=== PATIENT | male | born 1980 ===

== ENCOUNTER 2017-08-09 09:33 | Observation (INO) | payer BC ==
[2017-08-09 09:44] VITALS: BMI 38.3
[2017-08-09] MEDS ORDERED: Albuterol-Ipratrop 3 mg / 0.5 (3 ml) UD IH STA ×2 (09:50→11:35)
--- NOTE | 2017-08-09 09:55 | ED PDOC ---
Arrival/HPI - General Historian: Patient - History of Present Illness Time/Duration: 4-6 hours Symptom Onset: Sudden Symptom Course: Intermittent Quality: Unable to Describe Severity Level: Moderate, Severe Context: Walking, Exertion, Home, Work <Charmaine Chapman - Last Filed: 08/09/17 11:53> <ElenaStanford - Last Filed: 08/09/17 11:56> - General Chief Complaint: Chest Pain Time Seen by Provider: 08/09/17 09:35 - History of Present Illness Narrative History of Present Illness (Text): 08/09/17 09:52 37M w/PMH sig for asthma, eczema evaluated for chest pain x few hrs. Pt reports left sided, non radiating, intermittent, severe chest pain that started this AM. Pt went to work, was walking up stairs with recurrence of chest pain. "Does not feel right" Admits to dizziness, SOB, palpitations, recent URI illness. No other complaints. PMH: Asthma, Eczema PSH: Denies All: Seasonal, peanuts, egg, shellfish SH: Denies tobacco, ETOH, or illicit drug use PMD: Adaniel (Charmaine Chapman) Modifying Factors (Text): 08/09/17 09:55 None (Charmaine Chapman) Associated Symptoms (Text): 08/09/17 09:55 None (Charmaine Chapman) Past Medical History - Provider Review Nursing Documentation Reviewed: Yes - Infectious Disease Hx of Infectious Diseases: None - Tetanus Immunization Tetanus Immunization: Up to Date - Cardiac Hx Cardiac Disorders: No - Pulmonary Hx Asthma: Yes Hx Bronchitis: Yes - Neurological Hx Neurological Disorder: No - HEENT Hx HEENT Disorder: No - Renal Hx Renal Disorder: No - Endocrine/Metabolic Hx Endocrine Disorders: No - Hematological/Oncological Hx Blood Disorders: No - Integumentary Hx Dermatological Disorder: Yes Hx Eczema: Yes - Musculoskeletal/Rheumatological Hx Musculoskeletal Disorders: No Hx Falls: No - Gastrointestinal Hx Gastrointestinal Disorders: No - Genitourinary/Gynecological Hx Genitourinary Disorders: No - Psychiatric Hx Psychophysiologic Disorder: No Hx Anxiety: No Hx Bipolar Disorder: No Hx Depression: No Hx Emotional Abuse: No Hx Hallucinations: No Hx Panic Disorder: No Hx Post Traumatic Stress Disorder: No Hx Psychosis: No Hx Physical Abuse: No Hx Schizophrenia: No Hx Sexual Abuse: No Hx Substance Use: No - Past Surgical History Past Surgical History: No Previous - Anesthesia Hx Anesthesia: No Hx Anesthesia Reactions: No Hx Malignant Hyperthermia: No - Suicidal Assessment Feels Threatened In Home Enviroment: No <Charmaine Chapman - Last Filed: 08/09/17 11:53> Family/Social History - Physician Review Nursing Documentation Reviewed: Yes Family/Social History: No Known Family HX Smoking Status: Never Smoked Hx Alcohol Use: No Hx Substance Use: No Hx Substance Use Treatment: No <Charmaine Chapman - Last Filed: 08/09/17 11:53> Allergies/Home Meds <Charmaine Chapman - Last Filed: 08/09/17 11:53> <Baltazar Parkervicente - Last Filed: 08/09/17 11:56> Allergies/Adverse Reactions: Allergies EGG Allergy (Verified 08/09/17 09:50) ANAPHYLAXIS peanut Allergy (Verified 08/09/17 09:50) ANAPHYLAXIS shellfish derived Allergy (Verified 08/09/17 09:50) ANAPHYLAXIS Home Medications: Home Meds Medication Instructions Recorded Confirmed No Known Home Med 08/09/17 08/09/17 Review of Systems - Physician Review All systems were reviewed & negative as marked: Yes - Review of Systems Constitutional: Normal. absent: Fatigue, Fevers Eyes: Normal. absent: Vision Changes ENT: Sore Throat (recent), Rhinorrhea, Sinus Congestion. absent: Normal Respiratory: SOB, Cough, Wheezing. absent: Normal Cardiovascular: Chest Pain, Palpitations, GARCIA. absent: Normal, Syncope Gastrointestinal: Normal. absent: Abdominal Pain, Nausea, Vomiting Genitourinary Male: Normal. absent: Dysuria Musculoskeletal: Normal. absent: Back Pain Skin: Normal. absent: Rash Neurological: Dizziness. absent: Normal, Headache <Charmaine Chapman - Last Filed: 08/09/17 11:53> Physical Exam Vital Signs Reviewed: Yes Temperature: Afebrile Blood Pressure: Hypertensive Pulse: Regular Respiratory Rate: Normal Appearance: Positive for: Non-Toxic Pain Distress: None Mental Status: Positive for: Alert and Oriented X 3 - Systems Exam Head: Present: Atraumatic, Normocephalic Extroacular Muscles: Present: EOMI Conjunctiva: Present: Normal Ears: Present: Normal Mouth: Present: Moist Mucous Membranes Nose (External): Present: Atraumatic Neck: Present: Normal Range of Motion Respiratory/Chest: Present: Wheezes (Right upper lung barnett). No: Good Air Exchange, Respiratory Distress, Accessory Muscle Use Cardiovascular: Present: Regular Rate and Rhythm, Normal S1, S2. No: Murmurs Abdomen: Present: Normal Bowel Sounds. No: Tenderness, Distention, Peritoneal Signs Upper Extremity: Present: Normal Inspection. No: Cyanosis, Edema Lower Extremity: Present: Edema (Right leg). No: Normal Inspection, Tenderness Neurological: Present: GCS=15, CN II-XII Intact, Speech Normal Skin: Present: Warm, Dry, Normal Color. No: Rashes Psychiatric: Present: Alert, Oriented x 3, Normal Insight, Normal Concentration <Charmaine Chapman - Last Filed: 08/09/17 11:53> Vital Signs Temp Pulse Resp BP Pulse Ox 08/09/17 10:57 98.5 F 86 18 127/59 L 100 08/09/17 09:48 98.3 F 72 18 154/88 H 100 08/09/17 09:45 72 18 154/88 H 100 Medical Decision Making - Lab Interpretations I have reviewed the lab results: Yes - EKG Interpretation Interpreted by ED Physician: Yes Type: 12 lead EKG <Charmaine Chapman - Last Filed: 08/09/17 11:53> - Lab Interpretations I have reviewed the lab results: Yes - RAD Interpretation Sprinkling System Irrigator: Radiologist - EKG Interpretation Interpreted by ED Physician: Yes Type: 12 lead EKG <Stanford Parker - Last Filed: 08/09/17 11:56> ED Course and Treatment: 08/09/17 09:57 Pt seen/evaluated, discussed with attending, will order cardiac work up and U/S of RLE to R/O DVT. Wells score 0- low likelihood of PE. 08/09/17 11:38 Case DW ED attending. Pt to be admitted for asthma exacerbation. Call placed to Dr. Chapman for admission. 08/09/17 11:53 Dr. Posadas accepts to service. bank president aware. (Charmaine Chapman) 08/09/17 In agreement with resident note, which includes further HPI details. Patient was seen and evaluated with resident, came up with plan and treatment together. On my examination patient has persistent wheezing more prominent in left lung base. The ultrasound done on right lower extremity is negative for DVT. Chest X-ray is unremarkable. For patient's persistent wheezing, he will be given additional nebulizer and steroid. Patient will be admitted for further evaluation for chest discomfort. ( Stanford Parker) - Lab Interpretations Lab Results: 08/09/17 10:02 08/09/17 10:02 Lab Results 08/09/17 11:01: D-Dimer, Quantitative 0.41 08/09/17 10:02: Sodium 143, Potassium 4.4, Chloride 105, Carbon Dioxide 31, Anion Gap 11, BUN 16, Creatinine 1.0, Est GFR ( Amer) > 60, Est GFR (Non- Af Amer) > 60, Random Glucose 89, Calcium 8.9, Total Bilirubin 0.6, AST 22, ALT 37, Alkaline Phosphatase 110, Lactate Dehydrogenase 655, Total Creatine Kinase 133, Troponin I < 0.01, NT-Pro-B Natriuret Pep 42.5, Total Protein 7.3, Albumin 4.0, Globulin 3.3, Albumin/Globulin Ratio 1.2 08/09/17 10:02: WBC 7.5 D, RBC 5.22, Hgb 12.7 L, Hct 40.0 L, MCV 76.6 L, MCH 24.3 L, MCHC 31.8, RDW 15.3 H, Plt Count 252, MPV 9.1, Gran % 69.6 H, Lymph % ( Auto) 15.9 L, Bourbon % (Auto) 6.2 H, Eos % (Auto) 8.0 H, Baso % (Auto) 0.3, Gran # 5.20, Lymph # 1.2, Bourbon # 0.5, Eos # 0.6, Baso # 0.02 08/09/17 09:35: Magnesium 2.1 08/09/17 09:35: PT 10.5, INR 0.97, APTT 28.8 - RAD Interpretation Radiology Orders: 08/09/17 09:50 CHEST PORTABLE [RAD] Stat 08/09/17 09:51 DUPLEX LOWER EXTRM VEIN RIGHT [US] Stat - Medication Orders Current Medication Orders: Discontinued Medications Albuterol/Ipratropium (Duoneb 3 Mg/0.5 Mg (3 Ml) Ud) 3 ml IH STAT STA Stop: 08/09/17 09:51 Last Admin: 08/09/17 10:29 Dose: 3 ml Albuterol/Ipratropium (Duoneb 3 Mg/0.5 Mg (3 Ml) Ud) 3 ml IH STAT STA Stop: 08/09/17 11:36 Aspirin (Aspirin Chewable) 81 mg PO STAT STA Stop: 08/09/17 11:37 Methylprednisolone (Solu-Medrol) 125 mg IVP STAT STA Stop: 08/09/17 11:37 <Charmaine Chapman - Last Filed: 08/09/17 11:53> - PA / AUTOMOTIVE SERVICE PROFESSIONAL / Resident Statement MD/DO has reviewed & agrees with the documentation as recorded. MD/DO has examined the patient and agrees with the treatment plan. - Scribe Statement The provider has reviewed the documentation as recorded by the Scribe <Stanford Parker - Last Filed: 08/09/17 11:56> - Scribe Statement Chela Alvarenga Provider Scribe Attestation: All medical record entries made by the Scribe were at my direction and personally dictated by me. I have reviewed the chart and agree that the record accurately reflects my personal performance of the history, physical exam, medical decision making, and the department course for this patient. I have also personally directed, reviewed, and agree with the discharge instructions and disposition. (Stanford Parker) Disposition/Present on Arrival - Present on Arrival Any Indicators Present on Arrival: No History of DVT/PE: No History of Uncontrolled Diabetes: No Urinary Catheter: No History of Decub. Ulcer: No History Surgical Site Infection Following: None - Disposition Have Diagnosis and Disposition been Completed?: Yes Disposition Time: 11:54 Patient Plan: Observation <Charmaine Chapman - Last Filed: 08/09/17 11:53> <Stanford Parker - Last Filed: 08/09/17 11:56> - Disposition Diagnosis: Chest pain, Acute asthma exacerbation Disposition: HOSPITALIZED Patient Problems: Current Active Problems Problem Status Onset Acute asthma exacerbation Acute Chest pain Acute Condition: FAIR
[2017-08-09 10:06] LABS: BASO # 0.02 K/mm3 (0.0-2.0); BASO % 0.3 % (0.0-3.0); EOS # 0.6 (0.0-0.7); GRAN # 5.2 (1.4-6.5); GRAN % 69.6 % (50.0-68.0); LYMPH # 1.2 (1.2-3.4); LYMPH % 15.9 % (22.0-35.0); MEAN CELL VOLUME 76.6 fl (80.0-105.0); MEAN CORPUSCULAR HEMOGLOBIN 24.3 pg (25.0-35.0); MEAN CORPUSCULAR HGB CONC 31.8 g/dl (31.0-37.0); MEAN PLATELET VOLUME 9.1 fl (7.0-11.0); MONO # 0.5 (0.1-0.6); MONO % 6.2 % (1.0-6.0); RED CELL DISTRIBUTION WIDTH 15.3 % (11.5-14.5); WHITE BLOOD COUNT 7.5 10^3/ul (4.5-11.0)
[2017-08-09 10:16] LABS: ALB/GLOB RATIO 1.2 (1.1-1.8); ALKALINE PHOSPHATASE 110 U/L (38-126); ALT/SGPT 37 U/L (7-56); AST/SGOT 22 U/L (17-59); BILIRUBIN,TOTAL 0.6 mg/dL (0.2-1.3); BLOOD UREA NITROGEN 16 mg/dL (7-21); CALCIUM 8.9 mg/dL (8.4-10.5); CARBON DIOXIDE 31 mmol/L (21-33); CHLORIDE 105 mmol/L (98-107); GFR AFRICAN-AMERICAN > 60; GLUCOSE,RANDOM 89 mg/dL (70-110); POTASSIUM 4.4 mmol/L (3.6-5.0); SODIUM 143 mmol/L (132-148); TOTAL PROTEIN 7.3 g/dL (5.8-8.3)
[2017-08-09 10:29] LABS: TROPONIN I < 0.01 ng/mL
[2017-08-09 10:34] LABS: INR 0.97 (0.93-1.08); PARTIAL THROMBOPLASTIN TIME 28.8 Seconds (23.7-30.8)
--- NOTE | 2017-08-09 12:41 | RAD ---
HISTORY: Chest pain COMPARISON: 02/12/2016 FINDINGS: LUNGS: No active pulmonary disease. PLEURA: No significant pleural effusion identified, no pneumothorax apparent. CARDIOVASCULAR: Normal. OSSEOUS STRUCTURES: No significant abnormalities. VISUALIZED UPPER ABDOMEN: Normal. OTHER FINDINGS: None. IMPRESSION: No active disease.
[2017-08-09] MEDS ORDERED: Albuterol-Ipratrop 3 mg / 0.5 (3 ml) UD IH PRN (13:00)
[2017-08-09] MEDS: Albuterol-Ipratrop 3 mg / 0.5 (3 ml) UD IH SCH ×2 (13:53→21:57)
[2017-08-09] MEDS: MethylPREDNISolone 40 mg Vial IV SCH ×2 (14:14→23:19)
[2017-08-09] MEDS: cefTRIAXone 1 gm 1 GM/100 ML BAG IVPB SCH (14:14)
--- NOTE | 2017-08-09 14:51 | CP.PCM.HP ---
History of Present Illness - History of Present Illness History of Present Illness: 37 year old male with PMHx with asthma and eczema. Pt complaining of CP that began at 6:30AM after getting off the train and climbing up the stairs. He states the pain was left-sided and central, and describes the pain as sharp, tight, and felt like someone pushed him. The pain was nonreproducible and does not radiate. It is associated with SOB, palpitations, dizziness and lightheadedness. This has been on-going and intermittent for about 7 hours now, and lasts able 30 seconds each. He says walking makes it worse and standing still helps alleviate the pain. He states the pain is 6-7/10. When he was sitting, he felt palpitations, and took his HR from an silva that showed his HR in the 100s. HE denies ever feeling like this before. He also complains of swelling in his right lower leg/foot for about 1 week. He also states he was feeling sick this past Monday, with a sore throat and cough that he attributes to seasonal allergies, and says he felt better by Monday. Patient denies fever, chills, numbness, tingling, headache, nausea, vomiting. PMH: asthma, eczema Meds: Claritin PO Daily, nebs Allergies: Peanuts (anaphylaxis), Shellfish (Hives), Eggs (Rash) PSH: denies FamHx: Maternal grandfather -> DM Social: denies ETOH, tobacco use, recreational drug Present on Admission - Present on Admission Any Indicators Present on Admission: No Review of Systems - Constitutional Constitutional: absent: Anorexia, Chills, Night Sweats, Weight Loss, Weakness - EENT Eyes: absent: Change in Vision Ears: absent: Decreased Hearing, Ear Pain Nose/Mouth/Throat: absent: Nasal Congestion, Nasal Discharge - Cardiovascular Cardiovascular: Chest Pain, Dyspnea on Exertion, Lightheadedness, Palpitations, Rapid Heart Rate. absent: Radiating Pain - Respiratory Respiratory: Dyspnea, Dyspnea on Exertion - Gastrointestinal Gastrointestinal: absent: Abdominal Pain - Genitourinary Genitourinary: absent: Difficulty Urinating - Musculoskeletal Musculoskeletal: absent: Numbness, Tingling - Integumentary Integumentary: Other Additional comments: lower right leg swelling and erythema - Neurological Neurological: Dizziness Past Patient History - Infectious Disease Hx of Infectious Diseases: None - Tetanus Immunizations Tetanus Immunization: Up to Date - Past Social History Smoking Status: Never Smoked - CARDIAC Hx Cardiac Disorders: No - PULMONARY Hx Asthma: Yes Hx Bronchitis: Yes - NEUROLOGICAL Hx Neurological Disorder: No - HEENT Hx HEENT Problems: No - RENAL Hx Chronic Kidney Disease: No - ENDOCRINE/METABOLIC Hx Endocrine Disorders: No - HEMATOLOGICAL/ONCOLOGICAL Hx Blood Disorders: No - INTEGUMENTARY Hx Dermatological Problems: Yes Hx Eczema: Yes - MUSCULOSKELETAL/RHEUMATOLOGICAL Hx Musculoskeletal Disorders: No Hx Falls: No - GASTROINTESTINAL Hx Gastrointestinal Disorders: No - GENITOURINARY/GYNECOLOGICAL Hx Genitourinary Disorders: No - PSYCHIATRIC Hx Psychophysiologic Disorder: No Hx Anxiety: No Hx Bipolar Disorder: No Hx Depression: No Hx Emotional Abuse: No Hx Hallucinations: No Hx Panic Symptoms: No Hx Post Traumatic Stress Disorder: No Hx Psychosis: No Hx Physical Abuse: No Hx Schizophrenia: No Hx Sexual Abuse: No Hx Substance Use: No - SURGICAL HISTORY Hx Surgeries: No - ANESTHESIA Hx Anesthesia: No Hx Anesthesia Reactions: No Hx Malignant Hyperthermia: No Meds Allergies/Adverse Reactions: Allergies Allergy/AdvReac Type Severity Reaction Status Date / Time EGG Allergy ANAPHYLAXIS Verified 08/09/17 09:50 peanut Allergy ANAPHYLAXIS Verified 08/09/17 09:50 shellfish derived Allergy ANAPHYLAXIS Verified 08/09/17 09:50 Physical Exam - Constitutional Appears: Non-toxic, No Acute Distress - Head Exam Head Exam: ATRAUMATIC, NORMAL INSPECTION, NORMOCEPHALIC - Eye Exam Eye Exam: EOMI, Normal appearance, PERRL Pupil Exam: PERRL - ENT Exam ENT Exam: Mucous Membranes Moist, Normal Exam - Neck Exam Neck exam: Negative for: Lymphadenopathy, Tenderness - Respiratory Exam Respiratory Exam: NORMAL BREATHING PATTERN Additional comments: Wheezing in leftlung base - Cardiovascular Exam Cardiovascular Exam: REGULAR RHYTHM, +S1, +S2 - GI/Abdominal Exam GI & Abdominal Exam: Normal Bowel Sounds. absent: Distended - Extremities Exam Extremities exam: Positive for: tenderness Additional comments: right lower extremity, warm to touch, and erythemetous - Neurological Exam Neurological exam: Alert, CN II-XII Intact, Oriented x3 - Psychiatric Exam Psychiatric exam: Normal Affect, Normal Mood - Skin Skin Exam: Normal Color Results - Vital Signs Recent Vital Signs: Last Vital Signs Temp 97.7 F 08/09/17 12:41 Pulse 74 08/09/17 13:52 Resp 16 08/09/17 12:41 BP 111/66 08/09/17 12:41 Pulse Ox 97 08/09/17 12:41 - Labs Result Diagrams: 08/09/17 10:02 08/09/17 10:02 Assessment & Plan - Assessment and Plan (Free Text) Assessment: 37 year old male with a PMH of asthma and eczema presents to the ED with intermittent chest pain, shortness of breath, palpitations, lightheadedness and dizziness. He is being worked up for asthma exacerbation vs ACS. He also is being treated for possible cellulitis of the lower right extremity. Plan: 1. Atypical chest pain r/o ACS, possible asthma exacerbation - EKG: NSR, pending official read, will follow serial EKG - patient being monitored in telemetry - ECHO ordered, pending results - initial trops negative, will follow serial trops, - Cardiology consulted - Lipid panel, HgbA1c ordered, UDS ordered - Aspirin 81 mg given in the ED - Received two treatments of duonebs in the ED, continue q6h and q2PRN - Given solumedrol in the ED, continue 30 mg q8h - Pulmonology, Dr. Combs consulted - CBC/ CMP ordered - On 2L O2 via nasal cannula 2. Cellulitis- R. LE - Afebrile, erythematous, non-pitting edema, continue to monitor -started on ceftriaxone 1 gm IV 3. DVT/GI ppx -pantoproxole 40 mg PO daily - Heparin Sc
--- NOTE | 2017-08-09 16:26 | US ---
PROCEDURE: Right lower extremity venous US HISTORY: Leg pain and swelling. Evaluate for DVT. PHYSICIAN(S): Krzysztof Arias M.D. TECHNIQUE: Duplex sonography and color-flow Doppler with graded compression were used to evaluate the deep venous system of the right lower extremity. FINDINGS: The visualized deep venous system of the right lower extremity is sonographically normal and compressible. Normal waveforms and augmentation are seen. There is no sonographic evidence for deep venous thrombosis in the visualized segments of the right lower extremity. IMPRESSION: 1. No sonographic evidence for deep venous thrombosis in the visualized segments of the right lower extremity.
[2017-08-09 16:28] LABS: CHOLESTEROL 147 mg/dL (130-200)
[2017-08-09] MEDS ORDERED: Pneumococcal 23-Valent Vaccine IM ONE (17:38)
--- NOTE | 2017-08-09 19:14 | CARD ---
APPROVED REPORT EKG Measurement Heart [id number] <Conclusion> Poor data quality, interpretation may be adversely affected Normal sinus rhythm Normal ECG
--- NOTE | 2017-08-09 19:14 | CARD ---
APPROVED REPORT EKG Measurement Heart [id number] <Conclusion> Normal sinus rhythm Normal ECG
[2017-08-09 19:54] LABS: TROPONIN I < 0.01 ng/mL
[2017-08-09 20:06] LABS: URINE BILIRUBIN NEGATIVE (NEGATIVE); URINE BLOOD SMALL (NEGATIVE); URINE GLUCOSE (UA) NEGATIVE (NEGATIVE); URINE KETONE NEGATIVE (NEGATIVE); URINE LEUKOCYTE ESTERASE NEGATIVE Leu/uL (NEGATIVE); URINE PROTEIN NEGATIVE mg/dL (<30 mg/dL); URINE UROBILINOGEN 0.2 E.U./dL (<1 E.U./dL)
[2017-08-09 20:12] LABS: URINE APPEARANCE CLEAR (CLEAR); URINE COLOR YELLOW (YELLOW)
[2017-08-09 20:24] LABS: URINE WBC 0 - 2 /hpf (0-6)
[2017-08-09 20:25] LABS: URINE EPITHELIAL CELLS 0 - 2 /hpf (0-5)
[2017-08-10 01:15] LABS: TROPONIN I < 0.01 ng/mL
[2017-08-10] MEDS: Albuterol-Ipratrop 3 mg / 0.5 (3 ml) UD IH SCH ×4 (02:50→22:06)
[2017-08-10] MEDS: Pantoprazole 40 mg EC Tab PO SCH (06:37)
[2017-08-10] MEDS: MethylPREDNISolone 40 mg Vial IV SCH (06:38)
[2017-08-10 07:51] LABS: ALB/GLOB RATIO 1.2 (1.1-1.8); ALKALINE PHOSPHATASE 108 U/L (38-126); ALT/SGPT 34 U/L (7-56); AST/SGOT 19 U/L (17-59); BILIRUBIN,TOTAL 0.6 mg/dL (0.2-1.3); BLOOD UREA NITROGEN 15 mg/dL (7-21); CALCIUM 9.4 mg/dL (8.4-10.5); CARBON DIOXIDE 26 mmol/L (21-33); CHLORIDE 103 mmol/L (98-107); GFR AFRICAN-AMERICAN > 60; GLUCOSE,RANDOM 123 mg/dL (70-110); POTASSIUM 4.8 mmol/L (3.6-5.0); SODIUM 140 mmol/L (132-148); TOTAL PROTEIN 7.6 g/dL (5.8-8.3)
[2017-08-10] MEDS: MethylPREDNISolone 40 mg Vial IVP SCH ×2 (09:57→22:02)
[2017-08-10] MEDS: cefTRIAXone 1 gm 1 GM/100 ML BAG IVPB SCH (09:58)
[2017-08-10 11:12] LABS: IRON 61 ug/dL (45-180)
--- NOTE | 2017-08-10 13:20 | CON ---
DATE: 08/10/2017 HISTORY OF PRESENT ILLNESS: The patient is a 37-year-old male, with past medical history significant for asthma, eczema, who presented to the emergency room yesterday with main complaint of left-sided chest pain. The patient states ,that yesterday morning, when he was going to work, he experienced the left-sided chest pain. After the chest pain, he also experienced shortness of breath and cough. He then came to the emergency room for additional evaluation. I did examine and interview the patient this morning. He is not short of breath at rest. He denies dyspnea on exertion. He does state to a mild persistent cough with no sputum production. As above, the patient did present with left-sided chest pain. His chest pain is "almost gone" this morning. There is no history of coughing up of blood. There is no history of chest pain - made worse with deep respirations. There is no history of temperatures, chills, or infectious exposure. There is no history of night sweats, weight loss, or appetite change prior to the above events. No history of leg or calf pains. No history of syncope or diaphoresis. No history of recent travel or trauma. REVIEW OF SYSTEMS: No history of nausea, vomiting, or diarrhea. No acute urinary symptoms. No new neurologic complaints. Rest of the review of systems is negative. ALLERGIES: EGGS, PEANUTS, AND SHELLFISH. SOCIAL HISTORY: Negative for tobacco and negative for alcohol. FAMILY HISTORY: No inheritable diseases. MEDICATIONS: Include a Proventil metered-dose inhaler. PHYSICAL EXAMINATION GENERAL: The patient appears comfortable this morning. He is not short of breath at rest. He is not using accessory muscles for breathing. VITAL SIGNS: Temperature is 97.8, pulse 78, respirations 18, blood pressure 125/73. Oxygen saturation on room air is 96%. HEENT: Normocephalic and atraumatic. No JVD. CARDIOVASCULAR: Positive S1 and S2. No S3 gallop. LUNGS: Decreased breath sounds at the bases. Minimal bilateral rhonchi. No wheezing. EXTREMITIES: No clubbing, cyanosis, or edema. Calves are nontender to palpation. GI: Abdomen is soft, nontender, and nondistended. Bowel sounds are positive. SKIN: No acute rash. NEUROLOGIC: Limited to present time. PERTINENT LABORATORY DATA: Chest x-ray was done yesterday and reviewed. There is no active disease present. Extremity ultrasound was also done. There is no evidence for deep venous thrombosis in the lower extremities. CBC: White count 7.5, hemoglobin 12.7, hematocrit 40.0, platelets of 252. D-dimer was done yesterday- negative (0.41). Complete metabolic profile: Glucose 123. Rest of the metabolic profiles within normal limits. IMPRESSION 1. Chest pain - resolving. 2. Mild bronchitis. 3. Asthma. 4. Mild anemia. PLAN The patient presents to [facility] with main complaint of left-sided chest pain. In addition to the chest pain, the patient also experienced shortness of breath and cough yesterday. He was thus admitted for additional evaluation and treatment. I did review the chest x-ray as above. The chest x-ray shows no acute disease. I have also reviewed the laboratory data. The D-dimer is negative - pointing against an acute pulmonary embolism( as an etiology for his chest pain). In addition, leg studies were done and were negative. As above, the patient does feel significantly better this morning, with almost complete resolution of his chest pain. On physical exam, only mild bronchospasm is noted. In addition, there is no significant alveolar-arterial gradient. Oxygen saturation on room air is 96%. I will continue the current nebulizer treatments and decrease the intravenous steroids this morning. Cardiology evaluation with Dr. Clemente has been ordered. Again, the patient is significantly improved this morning and is feeling much better - compared to yesterday. Additional pulmonary intervention will be based on the clinical status of the patient. I will discuss the above with Dr. Posadas. Thank you very much for this Pulmonary consultation. Heriberto Combs MD MTDAgnieszka
[2017-08-10] MEDS: Budesonide 0.5 mg/2 ml Inhal Susp UD IH SCH ×2 (13:43→22:07)
--- NOTE | 2017-08-10 16:00 | CARD ---
APPROVED REPORT EXAM: Two-dimensional and M-mode echocardiogram with Doppler and color Doppler. INDICATION Chest Pain 2D DIMENSIONS Left Atrium (2D)4.1 (1.6-4.0cm)IVSd1.2 (0.7-1.1cm) LVDd4.6 (3.9-5.9cm)PWd1.3 (0.7-1.1cm) LVDs3.3 (2.5-4.0cm)FS (%) 29.3 % LVEF (%)56.3 (>50%) M-Mode DIMENSIONS Aortic Root2.70 (2.2-3.7cm)Aortic Cusp Exc.2.00 (1.5-2.0cm) Aortic Valve AoV Peak Zbgcgvbd308.0cm/Angélica Peak GR.8mmHg Mitral Valve MV E Wcuenshd24.3cm/sMV A Cjftyrfw78.8cm/sE/A ratio1.4 TDI E/Lateral E'0.0E/Medial E'0.0 Tricuspid Valve TR Peak [id number]/sRAP [id number] Peak Gr.18mmHg [id number] LEFT VENTRICLE The left ventricle is normal size. There is mild concentric left ventricular hypertrophy. The left ventricular function is normal.EF-55-60-% There is normal LV segmental wall motion. The left ventricular diastolic function is normal. No left ventricle thrombus noted on this study. There is no ventricular septal defect visualized. There is no left ventricular aneurysm. There is no mass noted in the left ventricle. RIGHT VENTRICLE The right ventricle is normal size. There is normal right ventricular wall thickness. The right ventricular systolic function is normal. ATRIA The left atrium is mildly dilated. The right atrium size is normal. The interatrial septum is intact with no evidence for an atrial septal defect. AORTIC VALVE The aortic valve is thickened but opens well. No aortic regurgitation is present. There is no aortic valvular stenosis. There is no aortic valvular vegetation. MITRAL VALVE The mitral valve is thickened but opens well. Mitral regurgitation is trace. There is no mitral valve stenosis. There is no evidence of mitral valve prolapse. TRICUSPID VALVE The tricuspid valve leaflets are thickened , but open well. There is trace tricuspid regurgitation.RVSP-28 mmof Hg. There is no tricuspid valve stenosis. There is no tricuspid valve prolapse or vegetation. PULMONIC VALVE The pulmonary valve is normal in structure. There is no pulmonic valvular regurgitation. There is no pulmonic valvular stenosis. GREAT VESSELS The aortic root is normal in size. The ascending aorta is normal in size. The pulmonary artery is normal. The IVC is normal in size and collapses >50% with inspiration. PERICARDIAL EFFUSION There is no pleural effusion. There is no pericardial effusion. <Conclusion> The left ventricle is normal size. There is mild concentric left ventricular hypertrophy. The left ventricular function is normal.EF-55-60-% Mitral regurgitation is trace. There is trace tricuspid regurgitation.RVSP-28 mmof Hg. There is no pericardial effusion. The IVC is normal in size and collapses >50% with inspiration.
[2017-08-10 16:53] VITALS: O2SAT 95
--- NOTE | 2017-08-10 18:35 | CP.PCM.PN ---
Subjective - Date & Time of Evaluation Date of Evaluation: 08/10/17 Time of Evaluation: 06:00 - Subjective Subjective: Patient was seen and evaluted bedside. He stated he was feleing much improved today. he denied any SOB or CP. He felt his breathing has much improved. He did not have any complaints or acute issues. He also stated his swelling on his right lower leg had gone down. Patient denied F/C/N/V abdominal pain, sore throat or any other complaints. Objective - Vital Signs/Intake and Output Vital Signs (last 24 hours): Temp Pulse Resp BP Pulse Ox 98.7 F 90 19 111/56 L 95 08/10/17 16:00 08/10/17 16:00 08/10/17 16:00 08/10/17 16:00 08/10/17 16:00 Intake and Output: 08/10/17 08/10/17 06:59 18:59 Intake Total 120 Balance 120 - Medications Medications: Current Medications Albuterol/Ipratropium (Duoneb 3 Mg/0.5 Mg (3 Ml) Ud) 3 ml IH Q6H [facility] Last Admin: 08/10/17 13:43 Dose: 3 ml Albuterol/Ipratropium (Duoneb 3 Mg/0.5 Mg (3 Ml) Ud) 3 ml IH Q2 PRN PRN Reason: Shortness of Breath Budesonide (Pulmicort Respules) 0.5 mg IH [id number] [facility] Last Admin: 08/10/17 13:43 Dose: 0.5 mg Heparin Sodium (Porcine) (Heparin) 5,000 units SC Q12 ZOEY PRN Reason: Protocol Last Admin: 08/10/17 09:57 Dose: 5,000 units Ceftriaxone Sodium (Rocephin 1 Gram Ivpb) 1 gm in 100 mls @ 100 mls/hr IVPB DAILY [facility] PRN Reason: Protocol Last Admin: 08/10/17 09:58 Dose: 100 mls/hr Methylprednisolone (Solu-Medrol) 30 mg IVP Q12 [facility] Last Admin: 08/10/17 09:57 Dose: 30 mg Mupirocin (Bactroban Ointment) 0 gm TOP BID [facility] Stop: 08/14/17 18:01 Last Admin: 08/10/17 17:28 Dose: 1 applic Pantoprazole Sodium (Protonix Ec Tab) 40 mg PO 0600 [facility] Last Admin: 08/10/17 06:37 Dose: 40 mg - Labs Labs: 08/10/17 06:40 PT 10.5 Seconds (9.9-11.8) 08/09/17 09:35 INR 0.97 (0.93-1.08) 08/09/17 09:35 APTT 28.8 Seconds (23.7-30.8) 08/09/17 09:35 - Constitutional Appears: Non-toxic, No Acute Distress - Head Exam Head Exam: ATRAUMATIC, NORMAL INSPECTION, NORMOCEPHALIC - Eye Exam Eye Exam: EOMI, Normal appearance, PERRL - ENT Exam ENT Exam: Mucous Membranes Moist, Normal Exam - Neck Exam Neck Exam: Normal Inspection. absent: Lymphadenopathy - Respiratory Exam Respiratory Exam: Decreased Breath Sounds, Rhonchi, NORMAL BREATHING PATTERN - Cardiovascular Exam Cardiovascular Exam: REGULAR RHYTHM, +S1, +S2 - GI/Abdominal Exam GI & Abdominal Exam: Normal Bowel Sounds. absent: Tenderness - Extremities Exam Additional comments: slight erythema lower right leg medially - Neurological Exam Neurological Exam: Alert, Awake, Oriented x3 - Psychiatric Exam Psychiatric exam: Normal Mood - Skin Skin Exam: Erythema Additional comments: slight erythema lower right leg/foot medially Assessment and Plan - Assessment and Plan (Free Text) Assessment: 37 year old male with a PMH of asthma and eczema presents to the ED with intermittent chest pain, shortness of breath, palpitations, lightheadedness and dizziness. He is being worked up for asthma exacerbation vs ACS. He also is being treated for possible cellulitis of the lower right extremity. Plan: 1. Atypical chest pain r/o ACS, possible asthma exacerbation - EKG: NSR, Troponins negativex3 - chest xray no acute disease - patient being monitored in telemetry - ECHO shows concentric LVH, EF 55-60, trace MR, trace TR - Cardiology consulted - Cholestrol 147. LDL 102 - HgbA1c: 5.6 - UDS negative - Aspirin 81 mg given in the ED - Received two treatments of duonebs in the ED, continue q6h and q2PRN - Given solumedrol in the ED, decreased to 30 Q12 - Pulmonology, Dr. Combs consulted, decreased steroids, started pulmicort, following recommendations - CBC/ CMP ordered - On 2L O2 via nasal cannula 2. Cellulitis- R. LE - Afebrile, erythematous, non-pitting edema, continue to monitor - continue ceftriaxone 1 gm IV - mupiricon started the right foot 3. DVT/GI ppx -pantoproxole 40 mg PO daily - Heparin Sc
[2017-08-10 20:10] LABS: BLOOD UREA NITROGEN 19 mg/dL (7-21); CALCIUM 9.3 mg/dL (8.4-10.5); CARBON DIOXIDE 27 mmol/L (21-33); CHLORIDE 102 mmol/L (98-107); GFR AFRICAN-AMERICAN > 60; GLUCOSE,RANDOM 134 mg/dL (70-110); POTASSIUM 4.7 mmol/L (3.6-5.0); SODIUM 140 mmol/L (132-148)
[2017-08-10 20:15] LABS: HEMATOCRIT 42.1 % (42.0-52.0); MEAN CELL VOLUME 76.5 fl (80.0-105.0); MEAN CORPUSCULAR HEMOGLOBIN 24.5 pg (25.0-35.0); MEAN CORPUSCULAR HGB CONC 32.1 g/dl (31.0-37.0); MEAN PLATELET VOLUME 9.1 fl (7.0-11.0); RED CELL DISTRIBUTION WIDTH 15.6 % (11.5-14.5); WHITE BLOOD COUNT 16.9 10^3/ul (4.5-11.0)
[2017-08-10 22:57] LABS: HEMATOCRIT 42.5 % (38.5-50.0); HEMOGLOBIN 13.6 g/dL (13.2-17.1); RDW 16.4 % (11.0-15.0)
[2017-08-11] MEDS: Albuterol-Ipratrop 3 mg / 0.5 (3 ml) UD IH SCH ×2 (01:00→07:28)
--- NOTE | 2017-08-11 04:03 | CON ---
DATE: 08/10/2017 HISTORY: The patient is a 37-year-old male who presents with an episode of chest pain yesterday which has completely resolved. The patient's past medical history is notable for history of chest pain in the past in which workup has been negative. He does suffer from asthma in which he has been treated with bronchodilators at home. There is no previous cardiac history noted. His chest pain has resolved. Negative diabetes mellitus. Negative hypertension. Negative hypercholesterolemia. SOCIAL HISTORY: The patient denies smoking. REVIEW OF SYSTEMS: Fourteen point review of systems was reviewed in detail. No cardiac symptomatology can be elicited. PHYSICAL EXAMINATION: VITAL SIGNS: Stable. NECK: Negative JVD. LUNGS: Without rales. HEART: S1 and S2. EXTREMITIES: Without edema. LABORATORY DATA: Troponins are negative x2. EKG is within normal limits. IMPRESSION: 1. Atypical chest pain which is now resolved. 2. No evidence for acute coronary syndrome. 3. Asthma. 4. Dyspnea. Given there is no evidence for acute coronary syndrome, we will continue treatment for his bronchospasm. I have discussed with the patient. Once his bronchospasm has resolved, we will arrange for an outpatient stress test. Krzysztof Clemente MD
[2017-08-11] MEDS: Pantoprazole 40 mg EC Tab PO SCH (05:43)
[2017-08-11 06:39] VITALS: BP 111/65; RESP 20; TEMP 97.8
[2017-08-11 06:39] LABS: ALB/GLOB RATIO 1.3 (1.1-1.8); ALKALINE PHOSPHATASE 104 U/L (38-126); ALT/SGPT 47 U/L (7-56); AST/SGOT 34 U/L (17-59); BILIRUBIN,TOTAL 0.5 mg/dL (0.2-1.3); BLOOD UREA NITROGEN 23 mg/dL (7-21); CALCIUM 9.1 mg/dL (8.4-10.5); CARBON DIOXIDE 28 mmol/L (21-33); CHLORIDE 104 mmol/L (95-110); GFR AFRICAN-AMERICAN > 60; GLUCOSE,RANDOM 130 mg/dL (70-110); SODIUM 142 mmol/L (132-148); TOTAL PROTEIN 7.3 g/dL (5.8-8.3)
[2017-08-11] MEDS: Budesonide 0.5 mg/2 ml Inhal Susp UD IH SCH (07:28)
[2017-08-11 08:24] VITALS: PULSE 70
--- NOTE | 2017-08-11 10:11 | PN ---
DATE: 08/11/2017 PULMONARY NOTE SUBJECTIVE: The patient appears very comfortable at rest. He is not short of breath. PHYSICAL EXAMINATION: VITAL SIGNS: Temperature 97.8, pulse 70, respirations 18, blood pressure 111/65, and oxygen saturation on room air is 95%. HEENT: Normocephalic, atraumatic. No JVD. CARDIOVASCULAR: Positive S1 and S2. No S3 gallop. LUNGS: Improved breath sounds at the bases. Much less/minimal rhonchi. No wheezing. EXTREMITIES: No clubbing, cyanosis or edema. Calves are nontender to palpation. GASTROINTESTINAL: Abdomen is soft, nontender and nondistended. Bowel sounds are positive. SKIN: No acute rash. NEUROLOGIC: Exam limited at the present time. IMPRESSION: 1. Chest pain - resolved. 2. Mild bronchitis. 3. Asthma. 4. Mild anemia. PLAN: The patient appears very comfortable this morning. He is not short of breath at rest. His chest pain has resolved. He states he is feeling much,much better overall. On physical exam, his bronchospasm continues to resolve. In addition, the oxygen saturation on room air is 95%. I will continue the current nebulizer treatments and change to oral steroids this morning. The patient remains on antibiotic therapy. There are no temperatures noted. There was leukocytosis noted on yesterday's labs - probably secondary to the steroids. I would continue with the Cardiology evaluation. Input by Dr. Clemente is noted. Clinical status of the patient has significantly improved. I will discuss the above with Dr. Posadas. Heriberto Combs MD MTDAgnieszka
--- NOTE | 2017-08-11 11:25 | CP.PCM.DIS ---
Addendum entered and electronically signed by Gabe Coleman DO 08/11/17 12:57: Hospital Course: 37 year old male with PMHx with asthma and eczema presented to ED complaining of CP that began at 6:30AM after getting off the train and climbing up the stairs. He also complained of swelling and redness in his right lower leg/foot for about 1 week duration. Patient was admitted for chest pain and treated for asthma exacerbation and cellulitis with duonebs, solumedrol, rocephin and topical ointment. Cardiac causes of chest pain were worked up. EKG showed normal sinus rhythm, cardiac enzymes were negative, chest x-ray showed no active disease, and lower extremity ultrasound was negative for DVTs. Echocardiography showed LV normal size, EF 55-60%, MR trace, mild LV hypertrophy , trace TR, and no pericardial effusion. Lipid panel was ordered and showed total cholesterol 147 and triglycerides 160. Hemoglobin A1C was ordered and showed 5.6%. Cardiology was consulted and recommended outpatient stress test. Hemoglobin was found to be low so work up for anemia was started and showed iron 61, TIBC 276, ferritin 50.5, %saturation 22, MCV 75.6, MCH 24.3, RDW 16.4, and electrophoresis results pending. Continue oral antibiotics outpatient to finish course as well as oral steroid taper. Outpatient follow up with PCP in 2 weeks. Original Note: <Gabe Coleman - Last Filed: 08/11/17 11:24> Provider - Provider Date of Admission: 08/09/17 11:46 Attending physician: Subhash Posadas MD Consults: Dr. Clemente -Cardiology Dr. Combs- pulmonary Time Spent in preparation of Discharge (in minutes): 70 Hospital Course - Lab Results Lab Results: Most Recent Lab Values WBC 16.9 10^3/ul (4.5-11.0) H D 08/10/17 19:55 RBC 5.50 10^6/uL (3.5-6.1) 08/10/17 19:55 Hgb 13.5 g/dL (14.0-18.0) L 08/10/17 19:55 Hct 42.1 % (42.0-52.0) 08/10/17 19:55 MCV 76.5 fl (80.0-105.0) L 08/10/17 19:55 MCH 24.5 pg (25.0-35.0) L 08/10/17 19:55 MCHC 32.1 g/dl (31.0-37.0) 08/10/17 19:55 RDW 15.6 % (11.5-14.5) H 08/10/17 19:55 Plt Count 319 10^3/uL (120.0-450.0) 08/10/17 19:55 MPV 9.1 fl (7.0-11.0) 08/10/17 19:55 Gran % 69.6 % (50.0-68.0) H 08/09/17 10:02 Lymph % (Auto) 15.9 % (22.0-35.0) L 08/09/17 10:02 [place] % (Auto) 6.2 % (1.0-6.0) H 08/09/17 10:02 Eos % (Auto) 8.0 % (1.5-5.0) H 08/09/17 10:02 Baso % (Auto) 0.3 % (0.0-3.0) 08/09/17 10:02 Gran # 5.20 (1.4-6.5) 08/09/17 10:02 Lymph # 1.2 (1.2-3.4) 08/09/17 10:02 [place] # 0.5 (0.1-0.6) 08/09/17 10:02 Eos # 0.6 (0.0-0.7) 08/09/17 10:02 Baso # 0.02 K/mm3 (0.0-2.0) 08/09/17 10:02 Hemoglobinopathy Red Blood Count 5.63 Mill/mcL (4.20-5.80) 08/10/17 10:51 Hemoglobinopathy Hct 42.5 % (38.5-50.0) 08/10/17 10:51 Hemoglobinopathy Hgb 13.6 g/dL (13.2-17.1) 08/10/17 10:51 Hemoglobinopathy MCV 75.6 fL (80.0-100.0) L 08/10/17 10:51 Hemoglobinopathy MCH 24.2 pg (27.0-33.0) L 08/10/17 10:51 Hemoglobinopathy RDW 16.4 % (11.0-15.0) H 08/10/17 10:51 PT 10.5 Seconds (9.9-11.8) 08/09/17 09:35 INR 0.97 (0.93-1.08) 08/09/17 09:35 APTT 28.8 Seconds (23.7-30.8) 08/09/17 09:35 D-Dimer, Quantitative 0.41 mg/L FEU (0-0.50) 08/09/17 11:01 Sodium 142 mmol/L (132-148) 08/11/17 05:40 Potassium 5.0 mmol/L (3.6-5.0) 08/11/17 05:40 Chloride 104 mmol/L (95-110) 08/11/17 05:40 Carbon Dioxide 28 mmol/L (21-33) 08/11/17 05:40 Anion Gap 15 (10-20) 08/11/17 05:40 BUN 23 mg/dL (7-21) H 08/11/17 05:40 Creatinine 1.2 mg/dL (0.8-1.5) 08/11/17 05:40 Est GFR ( Amer) > 60 08/11/17 05:40 Est GFR (Non-Af Amer) > 60 08/11/17 05:40 Random Glucose 130 mg/dL (70-110) H 08/11/17 05:40 Hemoglobin A1c 5.6 % (4.2-6.5) 08/09/17 10:02 Calcium 9.1 mg/dL (8.4-10.5) 08/11/17 05:40 Magnesium 2.1 mg/dL (1.7-2.2) 08/09/17 09:35 Iron 61 ug/dL (45-180) 08/10/17 10:51 TIBC 276 ug/dL (261-462) 08/10/17 10:51 % Saturation 22 % (20-55) 08/10/17 10:51 Ferritin 50.5 ng/mL 08/10/17 10:53 Total Bilirubin 0.5 mg/dL (0.2-1.3) 08/11/17 05:40 AST 34 U/L (17-59) 08/11/17 05:40 ALT 47 U/L (7-56) 08/11/17 05:40 Alkaline Phosphatase 104 U/L (38-126) 08/11/17 05:40 Lactate Dehydrogenase 535 U/L (333-699) 08/10/17 00:30 Total Creatine Kinase 99 U/L (35-230) 08/10/17 00:30 Troponin I < 0.01 ng/mL 08/10/17 00:30 NT-Pro-B Natriuret Pep 42.5 pg/mL (0-450) 08/09/17 10:02 Total Protein 7.3 g/dL (5.8-8.3) 08/11/17 05:40 Albumin 4.1 g/dL (3.0-4.8) 08/11/17 05:40 Globulin 3.2 gm/dL 08/11/17 05:40 Albumin/Globulin Ratio 1.3 (1.1-1.8) 08/11/17 05:40 Triglycerides 160 mg/dL (35-160) 08/09/17 10:02 Cholesterol 147 mg/dL (130-200) 08/09/17 10:02 LDL Cholesterol Direct 102 mg/dL (0-129) 08/09/17 10:02 HDL Cholesterol 29 mg/dL (29-60) 08/09/17 10:02 Urine Color Yellow (YELLOW) 08/09/17 19:25 Urine Appearance Clear (CLEAR) 08/09/17 19:25 Urine pH 6.0 (4.7-8.0) 08/09/17 19:25 Ur Specific Concan 1.020 (1.005-1.035) 08/09/17 19:25 Urine Protein Negative mg/dL (<30 mg/dL) 08/09/17 19:25 Urine Glucose (UA) Negative mg/dL (NEGATIVE) 08/09/17 19:25 Urine Ketones Negative mg/dL (NEGATIVE) 08/09/17 19:25 Urine Blood Small (NEGATIVE) H 08/09/17 19:25 Urine Nitrate Negative (NEGATIVE) 08/09/17 19:25 Urine Bilirubin Negative (NEGATIVE) 08/09/17 19:25 Urine Urobilinogen 0.2 E.U./dL (<1 E.U./dL) 08/09/17 19:25 Ur Leukocyte Esterase Negative Graham/uL (NEGATIVE) 08/09/17 19:25 Urine RBC 1 - 3 /hpf (0-2) 08/09/17 19:25 Urine WBC 0 - 2 /hpf (0-6) 08/09/17 19:25 Ur Epithelial Cells 0 - 2 /hpf (0-5) 08/09/17 19:25 Urine Opiates Screen Negative (NEGATIVE) 08/09/17 19:25 Urine Methadone Screen Negative (NEGATIVE) 08/09/17 19:25 Ur Barbiturates Screen Negative (NEGATIVE) 08/09/17 19:25 Ur Phencyclidine Scrn Negative (NEGATIVE) 08/09/17 19:25 Ur Amphetamines Screen Negative (NEGATIVE) 08/09/17 19:25 U Benzodiazepines Scrn Negative (NEGATIVE) 08/09/17 19:25 U Oth Cocaine Metabols Negative (NEGATIVE) 08/09/17 19:25 U Cannabinoids Screen Negative (NEGATIVE) 08/09/17 19:25 Discharge Exam - Head Exam Head Exam: ATRAUMATIC, NORMAL INSPECTION, NORMOCEPHALIC - Eye Exam Eye Exam: EOMI, Normal appearance, PERRL - ENT Exam ENT Exam: Normal Exam - Respiratory Exam Respiratory Exam: Clear to PA & Lateral, NORMAL BREATHING PATTERN - Cardiovascular Exam Cardiovascular Exam: REGULAR RHYTHM, +S1, +S2 - GI/Abdominal Exam GI & Abdominal Exam: Normal Bowel Sounds - Neurological Exam Neurological exam: Alert, CN II-XII Intact, Oriented x3, Reflexes Normal - Psychiatric Exam Psychiatric exam: Normal Affect Discharge Plan - Discharge Medications Prescriptions: Mupirocin 2% Ointment [Bactroban Ointment] 1 applic TOP BID 14 Days #1 tube Methylprednisolone [Medrol Dose Pack (21 tabs)] 4 mg PO DAILY 6 Days #21 mg Cefdinir [Omnicef] 300 mg PO BID 3 Days #9 ml - Follow Up Plan Condition: FAIR Disposition: HOME/ ROUTINE Instructions: Chest Pain (DC), Asthma (DC) Additional Instructions: 1. Take abx onicef BID for 3 days 2. Take medrol dose lyssa for 6 days. 3. apply ointment mupircon on feet 2 times a day on sole of feet. 4. Follow upp with Dr. Posadas or Ari in 2 weeks 5. Follow up with Dr. Clemente for possible stress test. 6. Patient welcome to return if condition worsens Referrals: Krzysztof Clemente MD [Staff Provider] - <Johnny Chapman - Last Filed: 08/11/17 18:22> Provider - Provider Date of Admission: 08/09/17 11:46 Attending physician: Subhash Posadas MD [facility] Course - Lab Results Lab Results: Most Recent Lab Values WBC 16.9 10^3/ul (4.5-11.0) H D 08/10/17 19:55 RBC 5.50 10^6/uL (3.5-6.1) 08/10/17 19:55 Hgb 13.5 g/dL (14.0-18.0) L 08/10/17 19:55 Hct 42.1 % (42.0-52.0) 08/10/17 19:55 MCV 76.5 fl (80.0-105.0) L 08/10/17 19:55 MCH 24.5 pg (25.0-35.0) L 08/10/17 19:55 MCHC 32.1 g/dl (31.0-37.0) 08/10/17 19:55 RDW 15.6 % (11.5-14.5) H 08/10/17 19:55 Plt Count 319 10^3/uL (120.0-450.0) 08/10/17 19:55 MPV 9.1 fl (7.0-11.0) 08/10/17 19:55 Gran % 69.6 % (50.0-68.0) H 08/09/17 10:02 Lymph % (Auto) 15.9 % (22.0-35.0) L 08/09/17 10:02 [place] % (Auto) 6.2 % (1.0-6.0) H 08/09/17 10:02 Eos % (Auto) 8.0 % (1.5-5.0) H 08/09/17 10:02 Baso % (Auto) 0.3 % (0.0-3.0) 08/09/17 10:02 Gran # 5.20 (1.4-6.5) 08/09/17 10:02 Lymph # 1.2 (1.2-3.4) 08/09/17 10:02 [place] # 0.5 (0.1-0.6) 08/09/17 10:02 Eos # 0.6 (0.0-0.7) 08/09/17 10:02 Baso # 0.02 K/mm3 (0.0-2.0) 08/09/17 10:02 Hemoglobin A 97.1 Percent (>96.0) 08/10/17 10:51 Hemoglobin A2 1.9 Percent (1.8-3.5) 08/10/17 10:51 Hemoglobin C 0.0 Percent (0.0-0.0) 08/10/17 10:51 Hemoglobin F () <1.0 Percent (<2.0) 08/10/17 10:51 Hemoglobin S 0.0 Percent (0.0-0.0) 08/10/17 10:51 Variant Hemoglobin 0.0 Percent (0.0-0.0) 08/10/17 10:51 Hemoglobinopathy Red Blood Count 5.63 Mill/mcL (4.20-5.80) 08/10/17 10:51 Hemoglobinopathy Hct 42.5 % (38.5-50.0) 08/10/17 10:51 Hemoglobinopathy Hgb 13.6 g/dL (13.2-17.1) 08/10/17 10:51 Hemoglobinopathy MCV 75.6 fL (80.0-100.0) L 08/10/17 10:51 Hemoglobinopathy MCH 24.2 pg (27.0-33.0) L 08/10/17 10:51 Hemoglobinopathy RDW 16.4 % (11.0-15.0) H 08/10/17 10:51 Hemoglobinopathy Interp See note 08/10/17 10:51 PT 10.5 Seconds (9.9-11.8) 08/09/17 09:35 INR 0.97 (0.93-1.08) 08/09/17 09:35 APTT 28.8 Seconds (23.7-30.8) 08/09/17 09:35 D-Dimer, Quantitative 0.41 mg/L FEU (0-0.50) 08/09/17 11:01 Sodium 142 mmol/L (132-148) 08/11/17 05:40 Potassium 5.0 mmol/L (3.6-5.0) 08/11/17 05:40 Chloride 104 mmol/L (95-110) 08/11/17 05:40 Carbon Dioxide 28 mmol/L (21-33) 08/11/17 05:40 Anion Gap 15 (10-20) 08/11/17 05:40 BUN 23 mg/dL (7-21) H 08/11/17 05:40 Creatinine 1.2 mg/dL (0.8-1.5) 08/11/17 05:40 Est GFR ( Amer) > 60 08/11/17 05:40 Est GFR (Non-Af Amer) > 60 08/11/17 05:40 Random Glucose 130 mg/dL (70-110) H 08/11/17 05:40 Hemoglobin A1c 5.6 % (4.2-6.5) 08/09/17 10:02 Calcium 9.1 mg/dL (8.4-10.5) 08/11/17 05:40 Magnesium 2.1 mg/dL (1.7-2.2) 08/09/17 09:35 Iron 61 ug/dL (45-180) 08/10/17 10:51 TIBC 276 ug/dL (261-462) 08/10/17 10:51 % Saturation 22 % (20-55) 08/10/17 10:51 Ferritin 50.5 ng/mL 08/10/17 10:53 Total Bilirubin 0.5 mg/dL (0.2-1.3) 08/11/17 05:40 AST 34 U/L (17-59) 08/11/17 05:40 ALT 47 U/L (7-56) 08/11/17 05:40 Alkaline Phosphatase 104 U/L (38-126) 08/11/17 05:40 Lactate Dehydrogenase 535 U/L (333-699) 08/10/17 00:30 Total Creatine Kinase 99 U/L (35-230) 08/10/17 00:30 Troponin I < 0.01 ng/mL 08/10/17 00:30 NT-Pro-B Natriuret Pep 42.5 pg/mL (0-450) 08/09/17 10:02 Total Protein 7.3 g/dL (5.8-8.3) 08/11/17 05:40 Albumin 4.1 g/dL (3.0-4.8) 08/11/17 05:40 Globulin 3.2 gm/dL 08/11/17 05:40 Albumin/Globulin Ratio 1.3 (1.1-1.8) 08/11/17 05:40 Triglycerides 160 mg/dL (35-160) 08/09/17 10:02 Cholesterol 147 mg/dL (130-200) 08/09/17 10:02 LDL Cholesterol Direct 102 mg/dL (0-129) 08/09/17 10:02 HDL Cholesterol 29 mg/dL (29-60) 08/09/17 10:02 Urine Color Yellow (YELLOW) 08/09/17 19:25 Urine Appearance Clear (CLEAR) 08/09/17 19:25 Urine pH 6.0 (4.7-8.0) 08/09/17 19:25 Ur Specific [place] 1.020 (1.005-1.035) 08/09/17 19:25 Urine Protein Negative mg/dL (<30 mg/dL) 08/09/17 19:25 Urine Glucose (UA) Negative mg/dL (NEGATIVE) 08/09/17 19:25 Urine Ketones Negative mg/dL (NEGATIVE) 08/09/17 19:25 Urine Blood Small (NEGATIVE) H 08/09/17 19:25 Urine Nitrate Negative (NEGATIVE) 08/09/17 19:25 Urine Bilirubin Negative (NEGATIVE) 08/09/17 19:25 Urine Urobilinogen 0.2 E.U./dL (<1 E.U./dL) 08/09/17 19:25 Ur Leukocyte Esterase Negative Graham/uL (NEGATIVE) 08/09/17 19:25 Urine RBC 1 - 3 /hpf (0-2) 08/09/17 19:25 Urine WBC 0 - 2 /hpf (0-6) 08/09/17 19:25 Ur Epithelial Cells 0 - 2 /hpf (0-5) 08/09/17 19:25 Urine Opiates Screen Negative (NEGATIVE) 08/09/17 19:25 Urine Methadone Screen Negative (NEGATIVE) 08/09/17 19:25 Ur Barbiturates Screen Negative (NEGATIVE) 08/09/17 19:25 Ur Phencyclidine Scrn Negative (NEGATIVE) 08/09/17 19:25 Ur Amphetamines Screen Negative (NEGATIVE) 08/09/17 19:25 U Benzodiazepines Scrn Negative (NEGATIVE) 08/09/17 19:25 U Oth Cocaine Metabols Negative (NEGATIVE) 08/09/17 19:25 U Cannabinoids Screen Negative (NEGATIVE) 08/09/17 19:25 Attending/Attestation - Attestation I have personally seen and examined this patient.: Yes I have fully participated in the care of the patient.: Yes I have reviewed all pertinent clinical information, including history, physical exam and plan: Yes Notes (Text): 08/11/17 18:22 Medical record note made by the resident after discussion with my direction and input after the patient was personally seen and examined by me. I have reviewed the chart and agree that the record accurately reflects by personal performance of the history, physical exam, data review, and medical decision-making, in the course for the patient. I have also personally directed the plan of care.
[2017-08-11 15:29] LABS: HEMOGLOBIN F <1.0 Percent (<2.0)
--- NOTE | 2017-08-11 16:08 | PN ---
DATE: 08/11/2017 SUBJECTIVE: The patient is without chest pain, breathing is better. PHYSICAL EXAMINATION: VITAL SIGNS: Blood pressure 111/65, heart rate is in the 70s. NECK: Negative JVD. LUNGS: Without rales. HEART: With S1, S2. EXTREMITIES: Without edema. LABORATORY DATA: Glucose is 130. Troponins are negative x3. IMPRESSION: 1. No evidence for acute coronary syndrome. 2. Dyspnea is improved. 3. History of bronchospasm. 4. Resolution of atypical chest pain. PLAN: Given these findings, there is no further cardiac workup necessary at this time. Once his bronchospasm is resolved, we will arrange for an outpatient stress test to rule out coronary disease. Krzysztof Clemente MD
== END 2017-08-11 12:50 | disposition home or self-care (01) ==
LOC: ED 09:33 → ERH 11:46 → 3RSO 16:11 → ERH 16:11 → 3RSO 17:41
PROVIDERS: ADMIT Internal Medicine; ATTEND Internal Medicine
DX: J45.901 Unspecified asthma with (acute) exacerbation (principal); R07.89 Other chest pain; L03.115 Cellulitis of right lower limb; L30.9 Dermatitis, unspecified; D64.9 Anemia, unspecified
CPT/HCPCS: 36415; 71010; 80053; 80061; 81001; 82550; 82728; 83021; 83036; 83540; 83550; 83615; 83735; 83880; 84484; 85014; 85018; 85025; 85027; 85041; 85378; 85610; 85730; 87086; 93005; 93306; 93971; 94640; 94760; 96365; 96366; 96368; 96372; 96375; 96376; 97116; 97162; 99284; G0378; G0480; G8978; G8979; G8980; J0696; J1644; J2920; J2930

== ENCOUNTER 2019-03-14 09:47 | Observation (INO) | payer BC, OTHER ==
[2019-03-14 09:47] VITALS: BMI 38.3
--- NOTE | 2019-03-14 10:01 | ED PDOC ---
Arrival/HPI <Mykel Patel - Last Filed: 03/14/19 11:21> - General Historian: Patient - History of Present Illness Narrative History of Present Illness (Text): 03/14/19 10:04 Patient is a 38 yo obese male with asthma and eczema who presents with chills and right leg swelling. He states that he started to have chills last night. When he woke up this morning, he had chills and sweats. He took Dayquil. This morning he also noticed his right leg was swollen and red from the ankle to the knee and in his right groin. Patient states that this has happened to him previously. He denies any trauma to the area. He denies recent travel. Denies long periods of immobility. 03/14/19 10:06 As per medical records, patient has a history of RLE edema and cellulitis on several occasions since at least 2013. Time/Duration: 4-6 hours Symptom Onset: Sudden Symptom Course: Worsening Activities at Onset: Rest <Sravani Spivey - Last Filed: 03/14/19 12:53> - General Chief Complaint: Fever Time Seen by Provider: 03/14/19 10:00 Past Medical History - Provider Review Nursing Documentation Reviewed: Yes Primary Care Provider: Mykel Rahman - Infectious Disease Hx of Infectious Diseases: None - Tetanus Immunization Tetanus Immunization: Up to Date - Cardiac Hx Cardiac Disorders: No - Pulmonary Hx Respiratory Disorders: Yes Hx Asthma: Yes - Neurological Hx Neurological Disorder: No - HEENT Hx HEENT Disorder: No - Renal Hx Renal Disorder: No - Endocrine/Metabolic Hx Endocrine Disorders: No - Hematological/Oncological Hx Blood Disorders: No - Integumentary Hx Dermatological Disorder: Yes Hx Eczema: Yes - Musculoskeletal/Rheumatological Hx Musculoskeletal Disorders: No - Gastrointestinal Hx Gastrointestinal Disorders: No - Genitourinary/Gynecological Hx Genitourinary Disorders: No - Psychiatric Hx Psychophysiologic Disorder: No Hx Substance Use: No - Past Surgical History Past Surgical History: No Previous - Anesthesia Hx Anesthesia: No - Suicidal Assessment Feels Threatened In Home Enviroment: No <Sravani Spivey - Last Filed: 03/14/19 12:53> Family/Social History - Physician Review Nursing Documentation Reviewed: Yes Family/Social History: Diabetes (maternal) Smoking Status: Never Smoked Hx Alcohol Use: No Hx Substance Use: No Hx Substance Use Treatment: No <PatricSravani - Last Filed: 03/14/19 12:53> Allergies/Home Meds <AmandaMykel - Last Filed: 03/14/19 11:21> <Sravani Spivey - Last Filed: 03/14/19 12:53> Allergies/Adverse Reactions: Allergies egg Allergy (Verified 03/14/19 12:45) SWELLING peanut Allergy (Verified 03/14/19 12:45) ANAPHYLAXIS shellfish derived Allergy (Verified 03/14/19 12:45) ANAPHYLAXIS Home Medications: Home Meds Medication Instructions Recorded Confirmed No Known Home Med 08/21/17 03/14/19 Review of Systems - Physician Review All systems were reviewed & negative as marked: Yes - Review of Systems Constitutional: Fevers, Night Sweats. absent: Fatigue Eyes: Normal ENT: Normal Respiratory: absent: SOB, Cough Cardiovascular: absent: Chest Pain, Palpitations Gastrointestinal: absent: Abdominal Pain, Constipation, Diarrhea, Nausea, Vomiting Genitourinary Male: absent: Dysuria, Hematuria Skin: Cellulitis (RLE circomferential below knee to above ankle). absent: Rash, Pruritis Neurological: absent: Headache, Dizziness Endocrine: Diaphoresis Hemo/Lymphatic: Adenopathy (R inguinal) <Sravani Spivey - Last Filed: 03/14/19 12:53> Physical Exam Vital Signs Temp Pulse Resp BP Pulse Ox 03/14/19 09:57 98.6 F 90 16 143/82 97 <Mykel Patel - Last Filed: 03/14/19 11:21> Vital Signs Reviewed: Yes Vital Signs Temp Pulse Resp BP Pulse Ox 03/14/19 09:57 98.6 F 90 16 143/82 97 Temperature: Afebrile Blood Pressure: Normal Pulse: Regular Respiratory Rate: Normal Appearance: Positive for: Non-Toxic, Comfortable Pain Distress: None Mental Status: Positive for: Alert and Oriented X 3 - Systems Exam Head: Present: Atraumatic, Normocephalic Pupils: Present: PERRL Extroacular Muscles: Present: EOMI Conjunctiva: Present: Normal Mouth: Present: Moist Mucous Membranes Neck: Present: Normal Range of Motion Respiratory/Chest: Present: Clear to Auscultation, Good Air Exchange Cardiovascular: Present: Regular Rate and Rhythm, Normal S1, S2 Lower Extremity: Present: Edema (RLE circumferential below knee to above ankle), NORMAL PULSES, Tenderness (RLE circumferential below knee to above ankle), Erythema (RLE circumferential below knee to above ankle), Temperature Abnormalties (RLE warm), Neurovascularly Intact, Capillary Refill < 2 s Neurological: Present: GCS=15, CN II-XII Intact, Speech Normal <Sravani Spivey - Last Filed: 03/14/19 12:53> Medical Decision Making ED Course and Treatment: 03/14/19 11:11 Patient seen and examined with resident. 38 year old M with chief complaint of right lower extremity swelling. Right lower extremity edema and tenderness, circumferential below knee to above ankle, noted on physical exam. - Lab Interpretations Lab Results: Total Bilirubin 1.5 mg/dL (0.2-1.3) H 03/14/19 10:25 AST 26 U/L (17-59) 03/14/19 10:25 ALT 30 U/L (7-56) 03/14/19 10:25 Alkaline Phosphatase 113 U/L (38-126) 03/14/19 10:25 Total Protein 8.3 g/dL (5.8-8.3) 03/14/19 10:25 Albumin 4.5 g/dL (3.0-4.8) 03/14/19 10:25 Globulin 3.8 gm/dL 03/14/19 10:25 Albumin/Globulin Ratio 1.2 (1.1-1.8) 03/14/19 10:25 - RAD Interpretation Radiology Orders: 03/14/19 10:18 DUPLEX LOWER EXTRM VEIN RIGHT [US] Stat <Mykel Patel - Last Filed: 03/14/19 11:21> ED Course and Treatment: 03/14/19 10:37 LE venous Doppler CBC, CMP, Mg, Phos 03/14/19 11:44 CXR UA, Urine Cx Blood Cx 03/14/19 11:47 Paged hospitalist for admission. Re-evaluation Time: 11:42 Reassessment Condition: Re-examined, Unchanged - Lab Interpretations I have reviewed the lab results: Yes Interpretation: Abnormal lab values (elev WBC with left shift) - RAD Interpretation Narrative RAD Interpretations (Text): 03/14/19 11:43 Venous Doppler RLE- no DVT CXR- unremarkable Corporation Officer: ED Physician - Medication Orders Current Medication Orders: 03/14/19 11:44 Vanco 1 g IV NS 1L bolus <Sravani Spivey - Last Filed: 03/14/19 12:53> - Scribe Statement The provider has reviewed the documentation as recorded by the Gerhard White All medical record entries made by the Florecitaibe were at my direction and personally dictated by me. I have reviewed the chart and agree that the record accurately reflects my personal performance of the history, physical exam, medical decision making, and the department course for this patient. I have also personally directed, reviewed, and agree with the discharge instructions and disposition. <Mykel Patel - Last Filed: 03/14/19 11:21> Disposition/Present on Arrival <Mykel Patel - Last Filed: 03/14/19 11:21> - Present on Arrival Any Indicators Present on Arrival: No History of DVT/PE: No History of Uncontrolled Diabetes: No Urinary Catheter: No History of Decub. Ulcer: No History Surgical Site Infection Following: None - Disposition Have Diagnosis and Disposition been Completed?: Yes Disposition Time: 12:53 Patient Plan: Admission <Sravani Spivey - Last Filed: 03/14/19 12:53> - Disposition Diagnosis: Cellulitis, Leukocytosis Disposition: HOSPITALIZED Patient Problems: Current Active Problems Problem Status Onset Cellulitis Acute Leukocytosis Acute Condition: FAIR Forms: [employer] ([employer])
[2019-03-14 11:02] LABS: BASO # 0.02 K/mm3 (0.0-2.0); BASO % 0.1 % (0.0-3.0); EOS # 0.1 (0.0-0.7); EOS % 0.9 % (1.5-5.0); HEMOGLOBIN 14.4 g/dL (14.0-18.0); LYMPH # 0.9 (1.2-3.4); LYMPH % 5.7 % (22.0-35.0); MEAN CELL VOLUME 77.1 fl (80.0-105.0); MEAN CORPUSCULAR HEMOGLOBIN 24.2 pg (25.0-35.0); MEAN CORPUSCULAR HGB CONC 31.4 g/dl (31.0-37.0); MEAN PLATELET VOLUME 9.3 fl (7.0-11.0); MONO # 0.6 (0.1-0.6); MONO % 3.8 % (1.0-6.0); RBC 5.95 10^6/uL (3.5-6.1); RED CELL DISTRIBUTION WIDTH 15.3 % (11.5-14.5); WHITE BLOOD COUNT 16.4 10^3/uL (4.5-11.0)
[2019-03-14 11:06] LABS: ALB/GLOB RATIO 1.2 (1.1-1.8); ALBUMIN 4.5 g/dL (3.0-4.8); ALT/SGPT 30 U/L (7-56); AST/SGOT 26 U/L (17-59); BLOOD UREA NITROGEN 16 mg/dL (7-21); CALCIUM 9.5 mg/dL (8.4-10.5); GFR NON-AFRICAN AMERICAN > 60
[2019-03-14] MEDS ORDERED: Vancomycin 1gm in NS 250ml 1 GM/250 ML BAG IVPB STA (11:36)
[2019-03-14] MEDS ORDERED: Sodium Chloride 0.9% 1,000 ML IV STA (11:41)
--- NOTE | 2019-03-14 12:43 | RAD ---
Date of service: 03/14/2019 HISTORY: chills COMPARISON: 08/09/2017 TECHNIQUE: 1 view obtained. FINDINGS: LUNGS: No active pulmonary disease. PLEURA: No significant pleural effusion identified, no pneumothorax apparent. CARDIOVASCULAR: No aortic atherosclerotic calcification present. Normal cardiac size. No pulmonary vascular congestion. OSSEOUS STRUCTURES: No significant abnormalities. VISUALIZED UPPER ABDOMEN: Normal. OTHER FINDINGS: None. IMPRESSION: No active disease. No interval pathology noted.
--- NOTE | 2019-03-14 13:55 | CP.PCM.HP ---
<Dagmar Carrera - Last Filed: 03/14/19 14:09> History of Present Illness - History of Present Illness History of Present Illness: Dagmar Carrera, PGY1 Hospital H&P This is a 38 year old male with PMH of asthma and eczema presenting to the hospital for one day history of right leg swelling and chills. Patient states he developed chills last night before going to sleep and woke up this morning with continued chills as well as sudden onset of right leg swelling. Patient admits to 7/10 right leg pain, sharp, non radiating, worse with standing and better with laying down. Patient admits to similar symptoms one month ago that resolved spontaneously after a few days without intervention. Patient also admits to history of right leg cellulitis, last hospitalized in 2017. Patient also admits to cough and wheezing over the last week due to seasonal allergies. Patient states he generally uses his inhalers 3-4 times a week. He denies CP, SOB, fevers, nausea, vomiting, abdominal pain, back pain, urinary complaints, numbness, tingling, muscle weakness, diarrhea, constipation, hematemesis, recent travel, recent sickness, sick contacts at home and trauma. 12 point ROS noted here, otherwise unremarkable. PMD: Dr. adkins PMH: asthma and eczema SH: denies drinking, smoking and drug use Sx: denies surgical history FH: DM Meds: proair, singulair All: shellfish, egg, peanut -rash Present on Admission - Present on Admission Any Indicators Present on Admission: No Past Patient History - Infectious Disease Hx of Infectious Diseases: None - Tetanus Immunizations Tetanus Immunization: Up to Date - Past Social History Smoking Status: Never Smoked - CARDIAC Hx Cardiac Disorders: No - PULMONARY Hx Respiratory Disorders: Yes Hx Asthma: Yes - NEUROLOGICAL Hx Neurological Disorder: No - HEENT Hx HEENT Problems: No - RENAL Hx Chronic Kidney Disease: No - ENDOCRINE/METABOLIC Hx Endocrine Disorders: No - HEMATOLOGICAL/ONCOLOGICAL Hx Blood Disorders: No - INTEGUMENTARY Hx Dermatological Problems: Yes Hx Eczema: Yes - MUSCULOSKELETAL/RHEUMATOLOGICAL Hx Musculoskeletal Disorders: No - GASTROINTESTINAL Hx Gastrointestinal Disorders: No - GENITOURINARY/GYNECOLOGICAL Hx Genitourinary Disorders: No - PSYCHIATRIC Hx Psychophysiologic Disorder: No Hx Substance Use: No - SURGICAL HISTORY Hx Surgeries: No - ANESTHESIA Hx Anesthesia: No Meds Allergies/Adverse Reactions: Allergies Allergy/AdvReac Type Severity Reaction Status Date / Time egg Allergy SWELLING Verified 03/14/19 12:45 peanut Allergy ANAPHYLAXIS Verified 03/14/19 12:45 shellfish derived Allergy ANAPHYLAXIS Verified 03/14/19 12:45 Physical Exam - Constitutional Appears: Non-toxic, No Acute Distress - Head Exam Head Exam: ATRAUMATIC, NORMAL INSPECTION - Eye Exam Eye Exam: EOMI Pupil Exam: PERRL - ENT Exam ENT Exam: Mucous Membranes Moist - Neck Exam Neck exam: Positive for: Normal Inspection - Respiratory Exam Respiratory Exam: Wheezes. absent: Accessory Muscle Use, Respiratory Distress - Cardiovascular Exam Cardiovascular Exam: REGULAR RHYTHM, +S1, +S2. absent: Tachycardia - GI/Abdominal Exam GI & Abdominal Exam: Normal Bowel Sounds, Soft. absent: Firm, Guarding, T enderness - Extremities Exam Extremities exam: Positive for: pedal pulses present. Negative for: calf tenderness Additional comments: Right leg confluent erythema noted extending from ankle to right groin. No inguinal lymph nodes appreciated. Right lower leg is warm and tender to touch. No open or draining lesions appreciated. DP +2 B/L. - Back Exam Back exam: NORMAL INSPECTION - Neurological Exam Neurological exam: Alert, CN II-XII Intact, Oriented x3 - Skin Skin Exam: Normal Color, Warm Results - Vital Signs Recent Vital Signs: Last Vital Signs Temp 98.6 F 03/14/19 09:57 Pulse 94 H 03/14/19 12:09 Resp 16 03/14/19 12:09 BP 135/65 03/14/19 12:09 Pulse Ox 100 03/14/19 12:09 - Labs Result Diagrams: 03/14/19 10:25 03/14/19 10:25 Labs: Laboratory Results - last 24 hr 03/14/19 03/14/19 10:25 10:25 WBC 16.4 H RBC 5.95 Hgb 14.4 Hct 45.9 MCV 77.1 L MCH 24.2 L MCHC 31.4 RDW 15.3 H Plt Count 258 MPV 9.3 Neut % (Auto) 89.5 H Lymph % (Auto) 5.7 L [place] % (Auto) 3.8 Eos % (Auto) 0.9 L Baso % (Auto) 0.1 Lymph # (Auto) 0.9 L [place] # (Auto) 0.6 Eos # (Auto) 0.1 Baso # (Auto) 0.02 Absolute Neuts (auto) 14.67 H Sodium 138 Potassium 4.4 Chloride 98 Carbon Dioxide 32 Anion Gap 13 BUN 16 Creatinine 1.1 Est GFR ( Amer) > 60 Est GFR (Non-Af Amer) > 60 Random Glucose 96 Calcium 9.5 Phosphorus 2.9 Magnesium 1.8 Total Bilirubin 1.5 H AST 26 ALT 30 Alkaline Phosphatase 113 Total Protein 8.3 Albumin 4.5 Globulin 3.8 Albumin/Globulin Ratio 1.2 Assessment & Plan - Assessment and Plan (Free Text) Assessment: This is a 38 year old male with PMH of asthma and eczema presenting to the hospital for one day history of right leg swelling and chills. Plan: Right leg cellulitis -afebrile, elevated WBC -vancomycin, unasyn day 1 -will transition to PO antibiotics tomorrow if clinically improved -Ext US negative for DVT -blood/urine culture pending Ashtma exacerbation -duonebs q4 leola -duonebs q2 prn -solumedrol 40 IVP daily -CXR does not show active disease -continue home singulair PPX -pepcid -lovenox Patient seen and case discussed with attending, Dr. Isidro <Arabella Isidro - Last Filed: 03/16/19 11:13> Results - Vital Signs Recent Vital Signs: Last Vital Signs Temp 98.7 F 03/15/19 18:15 Pulse 92 H 03/15/19 18:15 Resp 18 03/15/19 18:15 BP 137/85 03/15/19 18:15 Pulse Ox 96 03/15/19 18:15 - Labs Result Diagrams: 03/15/19 05:20 03/15/19 05:20 Labs: Laboratory Results - last 24 hr 03/15/19 13:40 Urine Color Yellow Urine Appearance Clear Urine pH 6.0 Ur Specific [place] 1.025 Urine Protein Negative Urine Glucose (UA) Negative Urine Ketones Trace H Urine Blood Moderate H Urine Nitrate Negative Urine Bilirubin Negative Urine Urobilinogen 1.0 H Ur Leukocyte Esterase Negative Urine RBC 15 - 20 H Urine WBC 1 - 3 Ur Epithelial Cells 1 - 3 Urine Bacteria Mod Attending/Attestation - Attestation I have personally seen and examined this patient.: Yes I have fully participated in the care of the patient.: Yes I have reviewed all pertinent clinical information: Yes Notes (Text): 03/16/19 11:11 Medical record note made by the resident after discussion with my direction and input after the patient was personally seen and examined by me. I have reviewed the chart and agree that the record accurately reflects by personal performance of the history, physical exam, data review, and medical decision-making, in the course for the patient. I have also personally directed the plan of care. 38 year old male with PMH of Mild Persistant asthma and eczema was admitted with cellulitis of right leg and acute asthma exacerbation. Agreed with vancomycin and Unasyn for cellulitis. Continue Nebs and steroid for Asthama exacerbation. Management plan was discussed in detail with patient. Education was provided.
[2019-03-14] MEDS ORDERED: Albuterol-Ipratrop 3 mg / 0.5 (3 ml) UD IH PRN (14:00)
[2019-03-14] MEDS ORDERED: Pneumococcal 23-Valent Vaccine IM ONE (14:01)
[2019-03-14] MEDS: Albuterol-Ipratrop 3 mg / 0.5 (3 ml) UD IH SCH ×3 (16:17→23:36)
--- NOTE | 2019-03-14 19:58 | US ---
PROCEDURE: Right lower extremity venous US HISTORY: Leg pain and swelling. Evaluate for DVT. PHYSICIAN(S): Krzysztof Arias M.D. TECHNIQUE: Duplex sonography and color-flow Doppler with graded compression were used to evaluate the deep venous system of the right lower extremity. FINDINGS: The visualized deep venous system of the right lower extremity is sonographically normal and compressible. Normal waveforms and augmentation are seen. There is no sonographic evidence for deep venous thrombosis in the visualized segments of the right lower extremity. Enlarged inguinal lymph nodes are noted IMPRESSION: 1. No sonographic evidence for deep venous thrombosis in the visualized segments of the right lower extremity.
[2019-03-15] MEDS: Albuterol-Ipratrop 3 mg / 0.5 (3 ml) UD IH SCH ×4 (04:54→15:40)
[2019-03-15 06:02] LABS: BASO # 0.02 K/mm3 (0.0-2.0); BASO % 0.2 % (0.0-3.0); EOS # 0.3 (0.0-0.7); EOS % 3.6 % (1.5-5.0); HEMOGLOBIN 12.8 g/dL (14.0-18.0); LYMPH # 1.3 (1.2-3.4); LYMPH % 14.1 % (22.0-35.0); MEAN CELL VOLUME 76.6 fl (80.0-105.0); MEAN CORPUSCULAR HEMOGLOBIN 23.6 pg (25.0-35.0); MEAN CORPUSCULAR HGB CONC 30.8 g/dl (31.0-37.0); MEAN PLATELET VOLUME 9.2 fl (7.0-11.0); MONO # 0.6 (0.1-0.6); MONO % 6.4 % (1.0-6.0); RBC 5.42 10^6/uL (3.5-6.1); RED CELL DISTRIBUTION WIDTH 15.5 % (11.5-14.5); WHITE BLOOD COUNT 8.9 10^3/uL (4.5-11.0)
[2019-03-15 06:55] LABS: ALB/GLOB RATIO 1.1 (1.1-1.8); ALBUMIN 3.6 g/dL (3.0-4.8); ALT/SGPT 25 U/L (7-56); AST/SGOT 18 U/L (17-59); BLOOD UREA NITROGEN 13 mg/dL (7-21); CALCIUM 8.6 mg/dL (8.4-10.5); GFR NON-AFRICAN AMERICAN > 60
[2019-03-15 09:10] VITALS: O2SAT 96
[2019-03-15] MEDS ORDERED: Vancomycin 1gm in NS 250ml 1 GM/250 ML BAG IVPB SCH (10:00)
[2019-03-15] MEDS ORDERED: Enoxaparin 40 mg Syringe SC SCH (10:00)
[2019-03-15] MEDS ORDERED: MethylPREDNISolone 40 mg Vial IVP ONE (12:47)
[2019-03-15 13:50] LABS: URINE APPEARANCE CLEAR (CLEAR); URINE BILIRUBIN NEGATIVE (NEGATIVE); URINE BLOOD MODERATE (NEGATIVE); URINE COLOR YELLOW (YELLOW); URINE GLUCOSE (UA) NEGATIVE (NEGATIVE); URINE LEUKOCYTE ESTERASE NEGATIVE Leu/uL (NEGATIVE); URINE PROTEIN NEGATIVE mg/dL (<30 mg/dL)
[2019-03-15 14:04] LABS: URINE BACTERIA MOD /hpf; URINE RBC 15 - 20 /hpf (0-2)
--- NOTE | 2019-03-15 16:41 | CP.PCM.DIS ---
<Dagmar Carrera - Last Filed: 03/15/19 16:35> Provider - Provider Date of Admission: 03/14/19 12:11 Attending physician: Lynda Andre MD Consults: 03/14/19 14:14 Nursing Referral for Palliative Care Routine Comment: Physician Instructions: Reason For Exam: EVALUATION Time Spent in preparation of Discharge (in minutes): 35 Hospital Course - Lab Results Lab Results: Micro Results 03/14/19 12:40 Blood-Venous Blood Culture - Preliminary NO GROWTH AFTER 24 HOURS 03/14/19 12:00 Blood-Venous Blood Culture - Preliminary NO GROWTH AFTER 24 HOURS Most Recent Lab Values WBC 8.9 10^3/uL (4.5-11.0) D 03/15/19 05:20 RBC 5.42 10^6/uL (3.5-6.1) 03/15/19 05:20 Hgb 12.8 g/dL (14.0-18.0) L 03/15/19 05:20 Hct 41.5 % (42.0-52.0) L 03/15/19 05:20 MCV 76.6 fl (80.0-105.0) L 03/15/19 05:20 MCH 23.6 pg (25.0-35.0) L 03/15/19 05:20 MCHC 30.8 g/dl (31.0-37.0) L 03/15/19 05:20 RDW 15.5 % (11.5-14.5) H 03/15/19 05:20 Plt Count 228 10^3/uL (120.0-450.0) 03/15/19 05:20 MPV 9.2 fl (7.0-11.0) 03/15/19 05:20 Neut % (Auto) 75.7 % (50.0-68.0) H 03/15/19 05:20 Lymph % (Auto) 14.1 % (22.0-35.0) L 03/15/19 05:20 Franklin % (Auto) 6.4 % (1.0-6.0) H 03/15/19 05:20 Eos % (Auto) 3.6 % (1.5-5.0) 03/15/19 05:20 Baso % (Auto) 0.2 % (0.0-3.0) 03/15/19 05:20 Lymph # (Auto) 1.3 (1.2-3.4) 03/15/19 05:20 [place] # (Auto) 0.6 (0.1-0.6) 03/15/19 05:20 Eos # (Auto) 0.3 (0.0-0.7) 03/15/19 05:20 Baso # (Auto) 0.02 K/mm3 (0.0-2.0) 03/15/19 05:20 Absolute Neuts (auto) 6.76 (1.4-6.5) H 03/15/19 05:20 Sodium 141 mmol/L (132-148) 03/15/19 05:20 Potassium 3.9 mmol/L (3.6-5.0) 03/15/19 05:20 Chloride 104 mmol/L (98-107) 03/15/19 05:20 Carbon Dioxide 29 mmol/L (21-33) 03/15/19 05:20 Anion Gap 11 (10-20) 03/15/19 05:20 BUN 13 mg/dL (7-21) 03/15/19 05:20 Creatinine 1.1 mg/dl (0.8-1.5) 03/15/19 05:20 Est GFR ( Amer) > 60 03/15/19 05:20 Est GFR (Non-Af Amer) > 60 03/15/19 05:20 Random Glucose 89 mg/dL (70-110) 03/15/19 05:20 Calcium 8.6 mg/dL (8.4-10.5) 03/15/19 05:20 Phosphorus 2.4 mg/dL (2.5-4.5) L 03/15/19 05:20 Magnesium 1.9 mg/dL (1.7-2.2) 03/15/19 05:20 Total Bilirubin 1.3 mg/dL (0.2-1.3) 03/15/19 05:20 AST 18 U/L (17-59) 03/15/19 05:20 ALT 25 U/L (7-56) 03/15/19 05:20 Alkaline Phosphatase 92 U/L (38-126) 03/15/19 05:20 Total Protein 7.0 g/dL (5.8-8.3) 03/15/19 05:20 Albumin 3.6 g/dL (3.0-4.8) 03/15/19 05:20 Globulin 3.4 gm/dL 03/15/19 05:20 Albumin/Globulin Ratio 1.1 (1.1-1.8) 03/15/19 05:20 Urine Color Yellow (YELLOW) 03/15/19 13:40 Urine Appearance Clear (CLEAR) 03/15/19 13:40 Urine pH 6.0 (4.7-8.0) 03/15/19 13:40 Ur Specific [place] 1.025 (1.005-1.035) 03/15/19 13:40 Urine Protein Negative mg/dL (<30 mg/dL) 03/15/19 13:40 Urine Glucose (UA) Negative mg/dL (NEGATIVE) 03/15/19 13:40 Urine Ketones Trace mg/dL (NEGATIVE) H 03/15/19 13:40 Urine Blood Moderate (NEGATIVE) H 03/15/19 13:40 Urine Nitrate Negative (NEGATIVE) 03/15/19 13:40 Urine Bilirubin Negative (NEGATIVE) 03/15/19 13:40 Urine Urobilinogen 1.0 E.U./dL (<1 E.U./dL) H 03/15/19 13:40 Ur Leukocyte Esterase Negative Graham/uL (NEGATIVE) 03/15/19 13:40 Urine RBC 15 - 20 /hpf (0-2) H 03/15/19 13:40 Urine WBC 1 - 3 /hpf (0-6) 03/15/19 13:40 Ur Epithelial Cells 1 - 3 /hpf (0-5) 03/15/19 13:40 Urine Bacteria Mod /hpf (NONE) 03/15/19 13:40 Physical Exam - Constitutional Appears: Non-toxic, No Acute Distress - Head Exam Head Exam: ATRAUMATIC, NORMAL INSPECTION - Eye Exam Eye Exam: EOMI Pupil Exam: PERRL - ENT Exam ENT Exam: Mucous Membranes Moist - Neck Exam Neck exam: Positive for: Normal Inspection - Respiratory Exam Respiratory Exam: minimal Wheezes. absent: Accessory Muscle Use, Respiratory Distress - Cardiovascular Exam Cardiovascular Exam: REGULAR RHYTHM, +S1, +S2. absent: Tachycardia - GI/Abdominal Exam GI & Abdominal Exam: Normal Bowel Sounds, Soft. absent: Firm, Guarding, Tenderness - Extremities Exam Extremities exam: Positive for: pedal pulses present. Negative for: calf tenderness Additional comments: Minimal right leg confluent erythema noted extending from ankle to right groin. No inguinal lymph nodes appreciated. No open or draining lesions appreciated. DP +2 B/L. - Back Exam Back exam: NORMAL INSPECTION - Neurological Exam Neurological exam: Alert, CN II-XII Intact, Oriented x3 - Skin Skin Exam: Normal Color, Warm - Hospital Course Hospital Course: Upon admission, 38 year old male with PMH of asthma and eczema presenting to the hospital for one day history of right leg swelling and chills. Patient states he developed chills last night before going to sleep and woke up this morning with continued chills as well as sudden onset of right leg swelling. Patient admits to 7/10 right leg pain, sharp, non radiating, worse with standing and better with laying down. Patient admits to similar symptoms one month ago that resolved spontaneously after a few days without intervention. Patient also admits to history of right leg cellulitis, last hospitalized in 2017. Patient also admits to cough and wheezing over the last week due to seasonal allergies. Patient states he generally uses his inhalers 3-4 times a week. He denies CP, SOB, fevers, nausea, vomiting, abdominal pain, back pain, urinary complaints, numbness, tingling, muscle weakness, diarrhea, constipation, hematemesis, recent travel, recent sickness, sick contacts at home and trauma. 12 point ROS noted here, otherwise unremarkable. During hospital course, patient noted to have elevated WBC with fever concerning for RLE cellulitis. Patient started on vancomycin and unasyn and given IV an tibiotics for 2 days. EXT US was negative for DVT. CXR did not show active disease. Patient's fever and WBC resolved the following day and patient stated he would like to go home. RLE cellulitis improved with decreased erythema and decreased tenderness. Patient's asthma exacerbation was treated with duonebs prn and leola as well as solumedrol 40mg IVP. Patient's wheezing improved the following day and patient talking in full of sentences without any restriction. All of patient's questions were answered to satisfaction and patient agreed to follow up with his doctor within one week of discharge. Discharge Plan - Discharge Medications Prescriptions: Budesonide [Pulmicort Flexhaler] 180 mcg IH BID 30 Days #120 actuation Cephalexin [Keflex] 500 mg PO TID 7 Days #21 capsule Doxycycline Hyclate 100 mg PO BID 7 Days #14 capsule - Follow Up Plan Condition: FAIR Disposition: HOME/ ROUTINE Instructions: Cellulitis (DC), Leukocytosis (DC) Additional Instructions: Please follow up with your primary care doctor, Dr. Rahman within 5-7 days of discharge. Please take doxycycline 100mg twice daily for 7 days. Please take keflex 500mg three times daily for 7 days. Please continue taking singulair and proair. You have been started on pulmicort twice daily for your asthma. Please obtain refills from your doctor. Please return to the ED for any new or worsening symptoms. <Arabella Isidro - Last Filed: 03/16/19 11:11> Provider - Provider Date of Admission: 03/14/19 12:11 Attending physician: Lynda Andre MD Consults: 03/14/19 14:14 Nursing Referral for Palliative Care Routine Comment: Physician Instructions: Reason For Exam: EVALUATION Hospital Course - Lab Results Lab Results: Micro Results 03/14/19 12:40 Blood-Venous Blood Culture - Preliminary NO GROWTH AFTER 24 HOURS 03/14/19 12:00 Blood-Venous Blood Culture - Preliminary NO GROWTH AFTER 24 HOURS Most Recent Lab Values WBC 8.9 10^3/uL (4.5-11.0) D 03/15/19 05:20 RBC 5.42 10^6/uL (3.5-6.1) 03/15/19 05:20 Hgb 12.8 g/dL (14.0-18.0) L 03/15/19 05:20 Hct 41.5 % (42.0-52.0) L 03/15/19 05:20 MCV 76.6 fl (80.0-105.0) L 03/15/19 05:20 MCH 23.6 pg (25.0-35.0) L 03/15/19 05:20 MCHC 30.8 g/dl (31.0-37.0) L 03/15/19 05:20 RDW 15.5 % (11.5-14.5) H 03/15/19 05:20 Plt Count 228 10^3/uL (120.0-450.0) 03/15/19 05:20 MPV 9.2 fl (7.0-11.0) 03/15/19 05:20 Neut % (Auto) 75.7 % (50.0-68.0) H 03/15/19 05:20 Lymph % (Auto) 14.1 % (22.0-35.0) L 03/15/19 05:20 Franklin % (Auto) 6.4 % (1.0-6.0) H 03/15/19 05:20 Eos % (Auto) 3.6 % (1.5-5.0) 03/15/19 05:20 Baso % (Auto) 0.2 % (0.0-3.0) 03/15/19 05:20 Lymph # (Auto) 1.3 (1.2-3.4) 03/15/19 05:20 Franklin # (Auto) 0.6 (0.1-0.6) 03/15/19 05:20 Eos # (Auto) 0.3 (0.0-0.7) 03/15/19 05:20 Baso # (Auto) 0.02 K/mm3 (0.0-2.0) 03/15/19 05:20 Absolute Neuts (auto) 6.76 (1.4-6.5) H 03/15/19 05:20 Sodium 141 mmol/L (132-148) 03/15/19 05:20 Potassium 3.9 mmol/L (3.6-5.0) 03/15/19 05:20 Chloride 104 mmol/L (98-107) 03/15/19 05:20 Carbon Dioxide 29 mmol/L (21-33) 03/15/19 05:20 Anion Gap 11 (10-20) 03/15/19 05:20 BUN 13 mg/dL (7-21) 03/15/19 05:20 Creatinine 1.1 mg/dl (0.8-1.5) 03/15/19 05:20 Est GFR ( Amer) > 60 03/15/19 05:20 Est GFR (Non-Af Amer) > 60 03/15/19 05:20 Random Glucose 89 mg/dL (70-110) 03/15/19 05:20 Calcium 8.6 mg/dL (8.4-10.5) 03/15/19 05:20 Phosphorus 2.4 mg/dL (2.5-4.5) L 03/15/19 05:20 Magnesium 1.9 mg/dL (1.7-2.2) 03/15/19 05:20 Total Bilirubin 1.3 mg/dL (0.2-1.3) 03/15/19 05:20 AST 18 U/L (17-59) 03/15/19 05:20 ALT 25 U/L (7-56) 03/15/19 05:20 Alkaline Phosphatase 92 U/L (38-126) 03/15/19 05:20 Total Protein 7.0 g/dL (5.8-8.3) 03/15/19 05:20 Albumin 3.6 g/dL (3.0-4.8) 03/15/19 05:20 Globulin 3.4 gm/dL 03/15/19 05:20 Albumin/Globulin Ratio 1.1 (1.1-1.8) 03/15/19 05:20 Urine Color Yellow (YELLOW) 03/15/19 13:40 Urine Appearance Clear (CLEAR) 03/15/19 13:40 Urine pH 6.0 (4.7-8.0) 03/15/19 13:[address] Ur Specific [place] 1.025 (1.005-1.035) 03/15/19 13:40 Urine Protein Negative mg/dL (<30 mg/dL) 03/15/19 13:40 Urine Glucose (UA) Negative mg/dL (NEGATIVE) 03/15/19 13:40 Urine Ketones Trace mg/dL (NEGATIVE) H 03/15/19 13:40 Urine Blood Moderate (NEGATIVE) H 03/15/19 13:40 Urine Nitrate Negative (NEGATIVE) 03/15/19 13:40 Urine Bilirubin Negative (NEGATIVE) 03/15/19 13:40 Urine Urobilinogen 1.0 E.U./dL (<1 E.U./dL) H 03/15/19 13:40 Ur Leukocyte Esterase Negative Graham/uL (NEGATIVE) 03/15/19 13:40 Urine RBC 15 - 20 /hpf (0-2) H 03/15/19 13:40 Urine WBC 1 - 3 /hpf (0-6) 03/15/19 13:40 Ur Epithelial Cells 1 - 3 /hpf (0-5) 03/15/19 13:40 Urine Bacteria Mod /hpf (NONE) 03/15/19 13:40 Attending/Attestation - Attestation I have personally seen and examined this patient.: Yes I have fully participated in the care of the patient.: Yes I have reviewed all pertinent clinical information, including history, physical exam and plan: Yes Notes (Text): 03/16/19 11:07 Medical record note made by the resident after discussion with my direction and input after the patient was personally seen and examined by me. I have reviewed the chart and agree that the record accurately reflects by personal performance of the history, physical exam, data review, and medical decision-making, in the course for the patient. I have also personally directed the plan of care. 38 year old male with PMH of Mild Persistant asthma and eczema was admitted with cellulitis of right leg and acute asthma exacerbation. Patient was treated with IV antibiotics for cellulitis.He has responded well.Redness is improving.WBC is coming downHe will be discharged home on oral Keflex and doxycycline. For Asthma exacerbation, Patient was treated with Neb/Steroid.His dyspnea is improved.He will be discharged home on tapering dose of steroid, low dose steroid inhaler and albuterol inhaler. Management plan was discussed in detail with patient. Education was provided.
[2019-03-15 18:16] VITALS: BP 137/85; PULSE 92; RESP 18; TEMP 98.7
== END 2019-03-15 18:26 | disposition home or self-care (01) ==
LOC: ED 09:47 → ERH 12:11 → 3RNO 14:15
PROVIDERS: ADMIT Internal Medicine; ATTEND Internal Medicine
DX: L03.115 Cellulitis of right lower limb (principal); J45.31 Mild persistent asthma with (acute) exacerbation; L30.9 Dermatitis, unspecified; E66.9 Obesity, unspecified; Z68.38 Body mass index [BMI] 38.0-38.9, adult; Z83.3 Family history of diabetes mellitus
CPT/HCPCS: 36415; 71045; 80053; 81001; 83735; 84100; 85025; 87040; 87086; 93971; 94640; 94760; 96365; 96366; 96367; 96372; 96375; 96376; 99285; G0378; J0295; J1650; J2920; J7030

== ENCOUNTER 2019-03-28 23:29 | Emergency (ER) | payer OTHER ==
[2019-03-28 23:29] VITALS: BMI 38.3
--- NOTE | 2019-03-28 23:38 | ED PDOC ---
Arrival/HPI - General Historian: Patient - History of Present Illness Narrative History of Present Illness (Text): 03/28/19 23:38 Patient is a 38 yo male with asthma and eczema who presents with R-sided chest pain and shortness of breath. Patient states that chest pain started about 2 hours ago when he was ending his day at work. 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 He describes the pain as sharp. He says it radiates to his back (right scapula). Pain has been constant. Pain worsens when he takes a deep breath. He also developed shortness of breath when the pain started. He used his rescue inhaler a few times without relief of symptoms. He denies diaphoresis, nausea, and vomiting. Time/Duration: 1-3 hours Symptom Onset: Sudden Symptom Course: Worsening Quality: Other (Sharp) Severity Level: Severe Activities at Onset: Light Context: Walking <Sravani Spivey - Last Filed: 03/29/19 01:10> <Chiki Mobley - Last Filed: 03/29/19 05:45> - General Chief Complaint: Chest Pain Time Seen by Provider: 03/28/19 23:37 Past Medical History - Provider Review Nursing Documentation Reviewed: Yes - Infectious Disease Hx of Infectious Diseases: None - Tetanus Immunization Tetanus Immunization: Up to Date - Cardiac Hx Cardiac Disorders: No - Pulmonary Hx Respiratory Disorders: Yes Hx Asthma: Yes - Neurological Hx Neurological Disorder: No - HEENT Hx HEENT Disorder: No - Renal Hx Renal Disorder: No - Endocrine/Metabolic Hx Endocrine Disorders: No - Hematological/Oncological Hx Blood Disorders: No - Integumentary Hx Dermatological Disorder: Yes Hx Eczema: Yes - Musculoskeletal/Rheumatological Hx Musculoskeletal Disorders: No - Gastrointestinal Hx Gastrointestinal Disorders: No - Genitourinary/Gynecological Hx Genitourinary Disorders: No - Psychiatric Hx Psychophysiologic Disorder: No Hx Substance Use: No - Past Surgical History Past Surgical History: No Previous - Anesthesia Hx Anesthesia: No - Suicidal Assessment Feels Threatened In Home Enviroment: No <Sravani Spivey - Last Filed: 03/29/19 01:10> Family/Social History - Physician Review Nursing Documentation Reviewed: Yes Family/Social History: Unknown Family HX Smoking Status: Never Smoked Hx Alcohol Use: No Hx Substance Use: No Hx Substance Use Treatment: No <Sravani Spivey - Last Filed: 03/29/19 01:10> Allergies/Home Meds <Sravani Spivey - Last Filed: 03/29/19 01:10> <Chiki Mobley - Last Filed: 03/29/19 05:45> Allergies/Adverse Reactions: Allergies egg Allergy (Verified 03/28/19 23:36) SWELLING peanut Allergy (Verified 03/28/19 23:36) ANAPHYLAXIS shellfish derived Allergy (Verified 03/28/19 23:36) ANAPHYLAXIS Home Medications: Home Meds Medication Instructions Recorded Confirmed Albuterol Sulfate [Proair Hfa] 2 puff PO PRN PRN 03/14/19 03/14/19 Albuterol Sulfate [Ventolin Hfa] 1 puff IH PRN PRN 03/14/19 03/14/19 Review of Systems - Review of Systems Constitutional: absent: Fatigue, Fevers Eyes: absent: Vision Changes ENT: absent: Hearing Changes Respiratory: SOB, Wheezing. absent: Cough, Sputum Cardiovascular: Chest Pain. absent: Palpitations, Edema Gastrointestinal: absent: Abdominal Pain, Nausea, Vomiting Genitourinary Male: absent: Dysuria, Hematuria Musculoskeletal: Back Pain Skin: absent: Rash, Pruritis, Skin Lesions Neurological: absent: Headache, Dizziness, Focal Weakness Endocrine: absent: Diaphoresis Hemo/Lymphatic: absent: Adenopathy <Sravani Spivey - Last Filed: 03/29/19 01:10> Physical Exam Vital Signs Reviewed: Yes Temperature: Afebrile Blood Pressure: Hypertensive Pulse: Regular Respiratory Rate: Normal Appearance: Positive for: Non-Toxic, Comfortable Pain Distress: Mild Mental Status: Positive for: Alert and Oriented X 3 - Systems Exam Head: Present: Atraumatic, Normocephalic Pupils: Present: PERRL Extroacular Muscles: Present: EOMI Conjunctiva: Present: Normal Mouth: Present: Moist Mucous Membranes Neck: Present: Normal Range of Motion Respiratory/Chest: Present: Wheezes. No: Respiratory Distress, Accessory Muscle Use Cardiovascular: Present: Regular Rate and Rhythm, Normal S1, S2. No: Murmurs Abdomen: No: Tenderness, Distention Back: Present: Normal Inspection. No: Midline Tenderness, Paraspinal Tenderness Neurological: Present: GCS=15, CN II-XII Intact, Speech Normal Skin: Present: Warm, Dry, Normal Color Psychiatric: Present: Alert, Oriented x 3, Normal Insight, Normal Concentration <Sravani Spivey - Last Filed: 03/29/19 01:10> Vital Signs Pulse Resp BP Pulse Ox 03/29/19 01:26 76 20 126/66 100 03/29/19 00:05 70 18 145/90 95 <Chiki Mobley - Last Filed: 03/29/19 05:45> Medical Decision Making ED Course and Treatment: 03/28/19 23:51 EKG, CXR Labs Duoneb x3, Mag sulfate, Solu-Medrol 03/29/19 01:10 Re-evaluated patient after 2 neb treatments. He states he is feeling better. He is still having pains with deep inspiration and cough. He appears much more comfortable. Explained negative results of work-up. Patient agreeable with discharge home. Re-evaluation Time: 01:10 Reassessment Condition: Improved - Lab Interpretations I have reviewed the lab results: Yes Interpretation: No clinic. lab abnormalty - RAD Interpretation Narrative RAD Interpretations (Text): 03/29/19 00:18 CXR- no active disease Radiology Orders: CXR Laboratory Helper: ED Physician - EKG Interpretation EKG Interpretation (Text): 03/28/19 23:56 NSR (70 bpm) No ST elevations Interpreted by ED Physician: Yes Type: 12 lead EKG Comparison: Com.w/previous EKG <Sravani Spivey - Last Filed: 03/29/19 01:10> - Lab Interpretations Lab Results: Troponin I < 0.01 ng/mL 03/29/19 00:00 Total Bilirubin 0.8 mg/dL (0.2-1.3) 03/29/19 00:00 AST 25 U/L (17-59) 03/29/19 00:00 ALT 27 U/L (7-56) 03/29/19 00:00 Alkaline Phosphatase 110 U/L (38-126) 03/29/19 00:00 Total Protein 7.4 g/dL (5.8-8.3) 03/29/19 00:00 Albumin 4.1 g/dL (3.0-4.8) 03/29/19 00:00 Globulin 3.3 gm/dL 03/29/19 00:00 Albumin/Globulin Ratio 1.2 (1.1-1.8) 03/29/19 00:00 - RAD Interpretation Radiology Orders: 03/28/19 23:43 CHEST PORTABLE [RAD] Stat - Medication Orders Current Medication Orders: Discontinued Medications Albuterol/Ipratropium (Duoneb 3 Mg/0.5 Mg (3 Ml) Ud) 3 ml IH Q15M ZOEY Stop: 03/29/19 00:16 Last Admin: 03/29/19 00:40 Dose: 3 ml Magnesium Sulfate (Magnesium Sulfate 2 Gm/50 Ml Water) 2 gm in 50 mls @ 50 mls/hr IVPB ONCE ONE Stop: 03/29/19 00:43 Last Admin: 03/29/19 00:41 Dose: 50 mls/hr eMAR Start Stop Document 03/29/19 00:41 HB (Rec: 03/29/19 00:41 HB [facility] [id number] Intravenous Solution Start Date 03/29/19 Start Time 00:00 End Date 03/29/19 End time 01:00 Total Infusion Time 60 Methylprednisolone (Solu-Medrol) 125 mg IVP STAT STA Stop: 03/28/19 23:45 Last Admin: 03/29/19 00:40 Dose: 125 mg IVP Administration Document 03/29/19 00:40 HB (Rec: 03/29/19 00:40 [facility] [id number] Charges for Administration # of IVP Administrations 1 <Chiki Mobley - Last Filed: 03/29/19 05:45> - PA / [employer] / Resident Statement CAROLYN has reviewed & agrees with the documentation as recorded. CAROLYN has examined the patient and agrees with the treatment plan. <Chiki Mobley - Last Filed: 03/29/19 05:45> Disposition/Present on Arrival - Present on Arrival Any Indicators Present on Arrival: No History of DVT/PE: No History of Uncontrolled Diabetes: No Urinary Catheter: No History of Decub. Ulcer: No History Surgical Site Infection Following: None - Disposition Have Diagnosis and Disposition been Completed?: Yes Disposition Time: 01:11 Patient Plan: Discharge <Sravani Spivey - Last Filed: 03/29/19 01:10> - Disposition Disposition Time: 01:00 <Chiki Mobley - Last Filed: 03/29/19 05:45> - Disposition Diagnosis: Asthma exacerbation, Pleuritic chest pain Disposition: HOME/ ROUTINE Condition: IMPROVED Discharge Instructions (ExitCare): Asthma, Adult (DC) Additional Instructions: ATUL BERGER, thank you for letting us take care of you today. The emergency medical care you received today was directed at your acute symptoms. If you were prescribed any medication, please fill it and take as directed. It may take several days for your symptoms to resolve. Return to the Emergency Department if your symptoms worsen, do not improve, or if you have any other problems. Please contact your doctor or call one of the physicians/clinics you have been referred to that are listed on the Patient Visit Information form that is included in your discharge packet. Bring any paperwork you were given at discharge with you along with any medications you are taking to your follow up visit. Our treatment cannot replace ongoing medical care by a primary care provider outside of the emergency department. Thank you for allowing the [facility] team to be part of your care today. Follow up with your primary care doctor in 2-3 days for re-evaluation and further management. Prescriptions: predniSONE [Prednisone] 40 mg PO DAILY #10 tab Referrals: Mykel Rahman DO [Primary Care Provider] - Follow up with primary Forms: [employer] (Slovak)
[2019-03-28] MEDS ORDERED: Magnesium Sulfate 2 gm/50 ml 2 GM/50 ML BAG IVPB ONE (23:44)
[2019-03-28] MEDS ORDERED: Albuterol-Ipratrop 3 mg / 0.5 (3 ml) UD IH SCH (23:45)
[2019-03-29 00:37] LABS: BASO # 0.03 K/mm3 (0.0-2.0); BASO % 0.3 % (0.0-3.0); EOS # 1.2 (0.0-0.7); EOS % 13.4 % (1.5-5.0); HEMOGLOBIN 13.1 g/dL (14.0-18.0); LYMPH # 1.8 (1.2-3.4); LYMPH % 21.4 % (22.0-35.0); MEAN CELL VOLUME 76.4 fl (80.0-105.0); MEAN CORPUSCULAR HEMOGLOBIN 24.1 pg (25.0-35.0); MEAN CORPUSCULAR HGB CONC 31.6 g/dl (31.0-37.0); MEAN PLATELET VOLUME 9.1 fl (7.0-11.0); MONO # 0.4 (0.1-0.6); RBC 5.43 10^6/uL (3.5-6.1); RED CELL DISTRIBUTION WIDTH 15.3 % (11.5-14.5); WHITE BLOOD COUNT 8.6 10^3/uL (4.5-11.0)
[2019-03-29 00:54] LABS: ALB/GLOB RATIO 1.2 (1.1-1.8); ALBUMIN 4.1 g/dL (3.0-4.8); ALT/SGPT 27 U/L (7-56); AST/SGOT 25 U/L (17-59); BLOOD UREA NITROGEN 15 mg/dL (7-21); CALCIUM 8.9 mg/dL (8.4-10.5); GFR NON-AFRICAN AMERICAN > 60
[2019-03-29 01:03] LABS: TROPONIN I < 0.01 ng/mL
[2019-03-29 01:26] VITALS: BP 126/66; PULSE 76; RESP 20; O2SAT 100
--- NOTE | 2019-03-29 11:06 | RAD ---
Date of service: 03/28/2019 HISTORY: chest pain COMPARISON: 03/14/2019. FINDINGS: LUNGS: The lungs are well inflated and clear. PLEURA: No pleural effusions or pneumothorax. CARDIOVASCULAR: The heart is normal in size. No aortic atherosclerotic calcifications present. OSSEOUS STRUCTURES: Within normal limits for the patient's age. VISUALIZED UPPER ABDOMEN: Normal. OTHER FINDINGS: None. IMPRESSION: No active pulmonary disease.
--- NOTE | 2019-03-29 11:42 | CARD ---
APPROVED REPORT Date of service: 03/28/2019 EKG Measurement Heart [id number] <Conclusion> Normal sinus rhythm Normal ECG
== END 2019-03-29 01:27 | disposition home or self-care (01) ==
LOC: ED 23:29
DX: J45.901 Unspecified asthma with (acute) exacerbation (principal); R07.81 Pleurodynia
CPT/HCPCS: 71045; 80053; 82550; 83615; 83735; 84484; 85025; 93005; 94640; 96365; 96375; 99283; J2930